=== PATIENT | male | born 1955 | race Caucasian/White ===

== ENCOUNTER 2019-12-03 11:00 | Outpatient (RCR) | payer OTHER, SELFPAY ==
[2019-12-03 11:55] LABS: Add Urine Microscopic? YES; Bilirubin Urine Neg (NEGATIVE); Blood Urine 3+ (Negative); Glucose Urine UA 2+ (Normal); Ketones Urine Negative (Negative); Leukocyte Esterase Urine 2+ (Negative); Nitrate Urine Negative (Negative); Protein Urine Neg (Negative); Urine Appearance Cloudy (CLEAR); Urine Color Yellow (Yellow); Urobilinogen Urine Norm (Negative); pH Urine 8.5 (5-7)
[2019-12-03 11:56] LABS: Sulfosalicylic Acid Urine Positive
[2019-12-03 12:00] LABS: RBC Urine 50-80 /hpf (0-2); WBC Urine 15-25 /hpf (0-5)
[2019-12-03 12:01] LABS: Add Urine Culture? Yes; Bacteria Urine 4+; Mucus Urine 1+; Triple Phosphate Crystal Urine 15-25 /hpf
== END 2019-12-18 23:59 | disposition home or self-care (01) ==
LOC: LAB 11:00
PROVIDERS: PCP Family Medicine; Visit Provider Family Medicine
DX: N39.0 Urinary tract infection, site not specified (principal)
CPT/HCPCS: 81003; 87077; 87086; 87186

== ENCOUNTER 2019-12-10 14:05 | Outpatient (RCR) | payer OTHER, SELFPAY ==
[2019-12-10 14:16] LABS: Basophils % 0.4 %; Eosinophils # 0.2 10^3/uL (0.0-0.8); Eosinophils % 2.9 %; Hematocrit 39.3 % (42.0-52.0); Hemoglobin 12.1 g/dL (11.7-16.6); Lymphocytes # 1.4 10^3/uL (0.8-4.8); Lymphocytes % 19.6 %; Mean Corpuscular HGB Conc 30.8 g/dL (30.0-36.0); Mean Corpuscular Hemoglobin 26.7 pg (28.0-34.0); Mean Corpuscular Volume 86.6 fL (80-94); Monocytes # 0.7 10^3/uL (0.2-0.9); Monocytes % 9.9 %; Neutrophils # 4.7 10^3/uL (1.8-7.7); Neutrophils % 66.6 %; Nucleated Red Blood Cells % 0 %; Platelet Count 197 10^3/cmm (130-400); Red Blood Count 4.54 10^6/uL (4.1-5.3); Red Cell Distribution Width 16.1 % (12.1-15.1)
[2019-12-10 14:46] LABS: Alanine Aminotransferase 17 U/L (0-41); Albumin Level 3.7 g/dL (3.5-5.2); Alkaline Phosphatase 156 IU/L (40-130); Anion Gap 16.6 (5-19); Aspartate Amino Transferase 21 U/L (0-40); Blood Urea Nitrogen 13 mg/dL (8-23); Calcium 9.2 mg/dL (8.5-10.5); Carbon Dioxide 25 mmol/L (22-29); Chloride 99 mmol/L (98-107); Chol HDL Ratio 2.59 mg/dL (1.0-5.00); Cholesterol 96 mg/dL (0-200); Estmated Average Glucose 177; Free T4 Free Thyroxine 1.25 ng/dL (0.82-1.77); Globulin 2.9 g/dL (1.3-4.6); Glomerular Filtration Rate 96.7 mL/min (90-130); Glucose 235 mg/dL (74-106); HDL Cholesterol 37 mg/dL (60-100); Hemoglobin A1C 7.8 % (4.0-6.0); LDL Cholesterol Calculated 44 mg/dL (50-129); LDL HDL Ratio 1.19 RATIO (0.00-3.22); Potassium 3.6 mmol/L (3.5-5.1); Sodium 137 mmol/L (136-145); Thyroid Stimulating Hormone 2.94 uIU/mL (0.27-4.20); Total Bilirubin 0.7 mg/dL (0.15-1.2); Total Protein 6.6 g/dL (6.6-8.7); Triglycerides 74 mg/dL (0-150)
== END 2019-12-18 23:59 | disposition home or self-care (01) ==
LOC: LAB 14:05
PROVIDERS: PCP Family Medicine; Visit Provider Nurse Practitioner Family
DX: N39.0 Urinary tract infection, site not specified (principal)
CPT/HCPCS: 80053; 80061; 83036; 84439; 84443; 85025

== ENCOUNTER 2020-02-11 18:59 | Outpatient (CLI) | payer MEDICARE, MEDICAID, SELFPAY ==
[2020-02-11 19:32] LABS: Add Urine Microscopic? YES; Bilirubin Urine Neg (NEGATIVE); Blood Urine 3+ (Negative); Glucose Urine UA Norm (Normal); Ketones Urine Negative (Negative); Leukocyte Esterase Urine 2+ (Negative); Nitrate Urine Positive (Negative); Protein Urine Neg (Negative); Urine Appearance Cloudy (CLEAR); Urine Color Yellow (Yellow); Urobilinogen Urine Norm (Negative); pH Urine 5 (5-7)
[2020-02-11 19:42] LABS: Add Urine Culture? Yes; Bacteria Urine 3+; RBC Urine 15-25 /hpf (0-2); WBC Urine 40-55 /hpf (0-5)
== END 2020-02-11 19:00 | disposition home or self-care (01) ==
LOC: LAB 19:04
PROVIDERS: PCP Family Medicine; Visit Provider Nurse Practitioner Family
DX: N30.00 Acute cystitis without hematuria (principal)
CPT/HCPCS: 81001; 87077; 87086; 87186

== ENCOUNTER 2020-04-01 13:21 | Outpatient (CLI) | payer MEDICARE, MEDICAID, SELFPAY ==
[2020-04-01 13:50] LABS: Basophils % 0.3 %; Eosinophils # 0.1 10^3/uL (0.0-0.8); Hematocrit 39.6 % (42.0-52.0); Hemoglobin 12.4 g/dL (11.7-16.6); Lymphocytes # 1.3 10^3/uL (0.8-4.8); Lymphocytes % 22.9 %; Mean Corpuscular HGB Conc 31.3 g/dL (30.0-36.0); Mean Corpuscular Hemoglobin 26.1 pg (28.0-34.0); Mean Corpuscular Volume 83.2 fL (80-94); Monocytes # 0.5 10^3/uL (0.2-0.9); Monocytes % 7.7 %; Neutrophils # 3.9 10^3/uL (1.8-7.7); Neutrophils % 66.8 %; Nucleated Red Blood Cells % 0 %; Platelet Count 155 10^3/cmm (130-400); Red Blood Count 4.76 10^6/uL (4.1-5.3); Red Cell Distribution Width 14.6 % (12.1-15.1); White Blood Count 5.9 10^3/uL (4.0-10.0)
[2020-04-01 14:06] LABS: Urine Appearance Cloudy (CLEAR); Urine Color Yellow (Yellow)
[2020-04-01 14:08] LABS: Glucose Urine UA 2+ (Normal); Ketones Urine Negative (Negative); Protein Urine Neg (Negative); Specific Gravity, Urine 1.015 (1.005-1.030); pH Urine 5 (5-7)
[2020-04-01 14:09] LABS: Add Urine Culture? Yes; Bacteria Urine 2+; Bilirubin Urine Neg (NEGATIVE); Blood Urine 3+ (Negative); Leukocyte Esterase Urine 1+ (Negative); Nitrate Urine Negative (Negative); RBC Urine TOO NUMEROUS TO CNT /hpf (0-2); Urobilinogen Urine 1 mg/dL (Negative); WBC Urine TOO NUMEROUS TO CNT /hpf (0-5)
[2020-04-01 15:28] LABS: 25 Hydroxy Vitamin D 17 ng/mL (30-100); Alanine Aminotransferase 24 U/L (0-41); Albumin Level 3.6 g/dL (3.5-5.2); Alkaline Phosphatase 121 IU/L (40-130); Anion Gap 16.7 (5-19); Aspartate Amino Transferase 27 U/L (0-40); Blood Urea Nitrogen 8 mg/dL (8-23); Calcium 9.1 mg/dL (8.5-10.5); Carbon Dioxide 23 mmol/L (22-29); Chloride 105 mmol/L (98-107); Chol HDL Ratio 2.33 mg/dL (1.0-5.00); Cholesterol 84 mg/dL (0-200); Globulin 2.6 g/dL (1.3-4.6); Glomerular Filtration Rate 96.7 mL/min (90-130); Glucose 197 mg/dL (65-115); HDL Cholesterol 36 mg/dL (60-100); LDL Cholesterol Calculated 27 mg/dL (50-129); LDL HDL Ratio 0.75 RATIO (0.00-3.22); Osmolality Calculated 293 mOsm/kg (285-295); Potassium 3.7 mmol/L (3.5-5.1); Sodium 141 mmol/L (136-145); Thyroid Stimulating Hormone 1.78 uIU/mL (0.27-4.20); Total Bilirubin 0.7 mg/dL (0.15-1.2); Total Protein 6.2 g/dL (6.6-8.7); Triglycerides 103 mg/dL (0-150)
[2020-04-01 17:17] LABS: Estmated Average Glucose 169; Hemoglobin A1C 7.5 % (4.0-6.0)
== END 2020-04-01 13:22 | disposition home or self-care (01) ==
LOC: LAB 13:25
PROVIDERS: PCP Nurse Practitioner Family; Visit Provider Nurse Practitioner Family
DX: N30.00 Acute cystitis without hematuria (principal); I50.9 Heart failure, unspecified; N18.9 Chronic kidney disease, unspecified
CPT/HCPCS: 80053; 80061; 81001; 82306; 83036; 84443; 85025

== ENCOUNTER 2020-06-21 17:41 | Outpatient (CLI) | payer MEDICARE, MEDICAID, SELFPAY ==
[2020-06-21 18:43] LABS: Bilirubin Urine Neg (NEGATIVE); Blood Urine 3+ (Negative); Glucose Urine UA Trace (Normal); Ketones Urine Negative (Negative); Leukocyte Esterase Urine 2+ (Negative); Nitrate Urine Negative (Negative); Protein Urine Trace (Negative); Specific Gravity, Urine 1.025 (1.005-1.030); Squamous Epithelial Cell Urine 0-4 (0-5); Urine Appearance Cloudy (CLEAR); Urine Color Yellow (Yellow); Urobilinogen Urine Norm (Negative); WBC Urine TOO NUMEROUS TO CNT /hpf (0-5); pH Urine 5 (5-7)
[2020-06-21 18:44] LABS: Add Urine Culture? Yes; Bacteria Urine 4+
== END 2020-06-21 17:42 | disposition home or self-care (01) ==
LOC: LAB 17:45
PROVIDERS: PCP Nurse Practitioner Family; Visit Provider Nurse Practitioner Family
DX: Z87.440 Personal history of urinary (tract) infections (principal); T83.511A Infection and inflammatory reaction due to indwelling urethral catheter, initial encounter; X58.XXXA Exposure to other specified factors, initial encounter
CPT/HCPCS: 81001; 87086; 87106

== ENCOUNTER → 2020-06-28 16:53 | Outpatient (BNVA) | payer MEDICARE, MEDICAID, SELFPAY | PROVIDERS: PCP Nurse Practitioner Family; Visit Provider Nurse Practitioner Family | DX: N39.0 Urinary tract infection, site not specified (principal) | CPT/HCPCS: 81003 ==

== ENCOUNTER → 2020-08-18 11:07 | Outpatient (BNVA) | payer MEDICARE, MEDICAID, SELFPAY | PROVIDERS: PCP Nurse Practitioner Family; Visit Provider Nurse Practitioner Family | DX: N39.0 Urinary tract infection, site not specified (principal); A49.9 Bacterial infection, unspecified | CPT/HCPCS: 80053; 81003; 87077; 87086; 87186 ==

== ENCOUNTER 2020-09-12 12:10 | Inpatient (IN) | payer MEDICARE, MEDICAID, SELFPAY ==
[2020-09-12] VITALS (11 sets, daily range): BP systolic 78–126; BP diastolic 59–89; PULSE 74–90; RESP 16–20; TEMP 36.4; O2SAT 94–98; BMI 23.0
--- NOTE | 2020-09-12 12:15 | ECG_ITS ---
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 Measurements Intervals Lena Rate: 77 P: ID: [id number] QRS: 79 QRSD: 82 T: 15 QT: 360 QTc: 408 Interpretive Statements ATRIAL FIBRILLATION LOW QRS VOLTAGE IN PRECORDIAL LEADS [QRS DEFLECTION < 1.0 mV IN CHEST LEADS] SEPTAL MYOCARDIAL INFARCTION , PROBABLY OLD [40+ ms Q WAVE IN V1/V2] Compared to ECG 05/18/2019 15:02:19 Low QRS voltage now present Myocardial infarct finding now present Ventricular-paced complex(es) or rhythm no longer present Electronically Signed On 09-13-2020 7:18:27 CDT by Kiya Franklin M.D. [email or web address]
--- NOTE | 2020-09-12 12:15 | XR_ITS ---
WS: [id number] Exam: XR chest 1V portable [id number] Date/Time of Exam: 09/12/2020 12:15 PM Reason For Exam: fever Comparison 05/14/2019. The lungs are clear and hyperinflated. Normal cardiomediastinal structures. An ICD superimposes the l eft chest. Regional bony structures are intact. XR/XR chest 1V portable [id number] IMPRESSION: 1. No acute cardiopulmonary findings.
--- NOTE | 2020-09-12 12:28 | W.ED.MALEGU ---
HPI - Male Genitourinary General: Chief complaint: Urogenital-Male Stated complaint: UTI, POSS SEPTIC Time Seen by Provider: 09/12/20 12:13 Source: patient and EMS Mode of arrival: EMS Limitations: no limitations History of Present Illness: HPI Narrative: Arnie is a 65-year-old male has a history of neurogenic bladder with indwelling Culp. He has been having low-grade fevers over the last 2 days and was diagnosed with a UTI over the weekend at [facility]. Patient placed on Augmentin. Had no improvement of his symptoms and was seen in clinic today. Patient was sent here by ambulance from the clinic as he was hypotensive and concerns for sepsis. Denies any worsening or improving factors. Patient's blood pressure at clinic was 90/60 patient was given IV fluids in route and his pressures improved at 96/65. Associated symptoms: Deny dysuria, nausea or vomiting Review of Systems Const: Denies: fever(s), chills, body aches or change in appetite Eyes: Denies: blurry vision or eye discomfort ENMT: Denies: throat pain or dental pain Card: Denies: chest pain Resp: Denies: dyspnea GI: Denies: abdominal pain, nausea, vomiting or diarrhea : Denies: dysuria Musc: Denies: neck pain or back pain Skin/Breast: Denies: rash Neuro: Reports: weakness in extremities Psych: Denies: depression Sheng/Lymph: Denies: easy bruising All/Imm: Denies: urticaria PFSH ED PFSH: Medical History BPH (benign prostatic hyperplasia) CAD (coronary artery disease) Chronic anticoagulation Diabetes mellitus, type II Erectile dysfunction GERD (gastroesophageal reflux disease) H/O deep venous thrombosis Mixed hyperlipidemia Neurogenic bladder Pacemaker PAT (paroxysmal atrial tachycardia) UTI (urinary tract infection), bacterial Vitamin D deficiency Surgical History H/O heart artery stent Physical Exam Const: COMMON NORMALS: patient oriented x3 GENERAL APPEARANCE: ill appearing HENMT: COMMON NORMALS: normocephalic and atraumatic HEAD & SCALP: normocephalic and atraumatic Eye: COMMON NORMALS: Equal, round and reactive pupils present and EOMs intact bilaterally PUPIL: Yes Equal, round and reactive pupils present Neck/C-Spine: COMMON NORMALS: full ROM and supple Chest: COMMONS NORMALS: normal inspection of the chest and normal palpation of entire chest wall Resp: COMMON NORMALS: normal respiratory effort, No retractions, No use of accessory muscles and clear to auscultation bilaterally AUSCULTATION: clear to auscultation bilaterally Cardio: COMMON NORMALS: regular rate, regular rhythm and No murmurs present (Cardio) RATE: regular rate RHYTHM: regular rhythm GI: COMMON NORMALS: Normal to inspection, nondistended, normoactive bowel sounds present, Soft to palpation, non-tender and no masses PALPATION: Yes Soft to palpation Extremity: COMMON NORMALS: normal to inspection and full ROM Neuro: COMMON NORMALS: patient oriented x3, moves all extremities and no focal motor deficits Psych: COMMON NORMALS: mental status grossly normal, Normal thought process present and cooperative THOUGHT PROCESS: Normal thought process present Skin: COMMON NORMALS: no rashes or lesions noted and no wounds GENERAL SKIN EXAM: no rashes or lesions noted Course Vital Signs: Vital signs: Vital Signs Temperature 97.6 F 09/12/20 12:17 Pulse Rate 84 09/12/20 14:30 Respiratory Rate 17 09/12/20 14:30 Blood Pressure 110/75 09/12/20 14:30 Pulse Oximetry 97 09/12/20 14:30 MDM - Male MDM Narrative: Medical decision making narrative: Patient presents here with hypotension was transferred here from clinic. Patient was initially hypotensive here but his blood pressures improved greatly after IV fluids. He does have a urinary tract infection. Patient CT of his abdomen here is negative. I spoke to hospitalist and will admit at this time. Patient has no signs of pneumonia or other cause for his hypotension. Lab Data: Labs: Lab Results 09/12/20 09/12/20 09/12/20 Range/Units 13:05 13:05 13:05 WBC 5.1 (4.0-10.0) 10^3/ uL RBC 4.38 (4.1-5.3) 10^6/u L Hgb 12.0 (11.7-16.6) g/dL Hct 37.6 L (42.0-52.0) % MCV 85.8 (80-94) fL MCH 27.4 L (28.0-34.0) pg MCHC 31.9 (30.0-36.0) g/dL RDW 14.0 (12.1-15.1) % Plt Count 135 (130-400) 10^3/c mm MPV 10.4 (7.4-10.4) fL Neut % (Auto) 57.2 % Lymph % (Auto) 25.9 % Marathon % (Auto) 14.3 % Eos % (Auto) 1.4 % Baso % (Auto) 0.6 % Neut # (Auto) 2.91 (1.8-7.7) 10^3/u L Lymph # (Auto) 1.3 (0.8-4.8) 10^3/u L Marathon # (Auto) 0.7 (0.2-0.9) 10^3/u L Eos # (Auto) 0.1 (0.0-0.8) 10^3/u L Baso # (Auto) 0.0 (0.0-0.1) 10^3/u L Nucleated RBC % (a uto) 0 % Nucleated RBCs # 0.0 /100WBC Sodium 138 (136-145) mmol/L Potassium 4.1 (3.5-5.1) mmol/L Chloride 103 (98-107) mmol/L Carbon Dioxide 25 (22-29) mmol/L Anion Gap 14.1 (5-19) BUN 15 (8-23) mg/dL Creatinine 0.5 L (0.7-1.2) mg/dL GFR Calculation 165.9 H (90-130) mL/min Glucose 105 (65-115) mg/dL Calculated Osmolal ity 287 (285-295) mOsm/k g Lactate 0.9 (0.5-2.2) mmol/L Calcium 8.2 L (8.5-10.5) mg/dL Magnesium 1.4 L (1.7-2.3) mg/dL Total Bilirubin 0.6 (0.15-1.2) mg/dL AST 28 (0-40) U/L ALT 27 (0-41) U/L Alkaline Phosphata se 127 (40-130) IU/L Total Protein 5.8 L (6.6-8.7) g/dL Albumin 3.4 L (3.5-5.2) g/dL Globulin 2.4 (1.3-4.6) g/dL Lipase 11 L (13-60) U/L Urine Color (Yellow) Urine Appearance (CLEAR) Urine pH (5-7) Ur Specific Gravit y (1.005-1.030) Urine Protein (Negative) Urine Glucose (UA) (Normal) Urine Ketones (Negative) Urine Blood (Negative) Urine Nitrate (Negative) Urine Bilirubin (Negative) Urine Urobilinogen (Negative) mg/dL Ur Leukocyte Katy ase (Negative) Urine RBC (0-2) /hpf Urine WBC (0-5) /hpf Ur Squamous Epith Cells (0-5) /hpf Amorphous Sediment Urine Bacteria (NONE) /hpf 09/12/ Range/Units 14:30 WBC (4.0-10.0) 10^3/ uL RBC (4.1-5.3) 10^6/u L Hgb (11.7-16.6) g/dL Hct (42.0-52.0) % MCV (80-94) fL MCH (28.0-34.0) pg MCHC (30.0-36.0) g/dL RDW (12.1-15.1) % Plt Count (130-400) 10^3/c mm MPV (7.4-10.4) fL Neut % (Auto) % Lymph % (Auto) % Marathon % (Auto) % Eos % (Auto) % Baso % (Auto) % Neut # (Auto) (1.8-7.7) 10^3/u L Lymph # (Auto) (0.8-4.8) 10^3/u L Marathon # (Auto) (0.2-0.9) 10^3/u L Eos # (Auto) (0.0-0.8) 10^3/u L Baso # (Auto) (0.0-0.1) 10^3/u L Nucleated RBC % (a uto) % Nucleated RBCs # /100WBC Sodium (136-145) mmol/L Potassium (3.5-5.1) mmol/L Chloride (98-107) mmol/L Carbon Dioxide (22-29) mmol/L Anion Gap (5-19) BUN (8-23) mg/dL Creatinine (0.7-1.2) mg/dL GFR Calculation (90-130) mL/min Glucose (65-115) mg/dL Calculated Osmolal ity (285-295) mOsm/k g Lactate (0.5-2.2) mmol/L Calcium (8.5-10.5) mg/dL Magnesium (1.7-2.3) mg/dL Total Bilirubin (0.15-1.2) mg/dL AST (0-40) U/L ALT (0-41) U/L Alkaline Phosphata se (40-130) IU/L Total Protein (6.6-8.7) g/dL Albumin (3.5-5.2) g/dL Globulin (1.3-4.6) g/dL Lipase (13-60) U/L Urine Color Juanis (Yellow) Urine Appearance Cloudy (CLEAR) Urine pH 5 (5-7) Ur Specific Gravit y 1.025 (1.005-1.030) Urine Protein 1+ H (Negative) Urine Glucose (UA) Norm (Normal) Urine Ketones Negative (Negative) Urine Blood 3+ H (Negative) Urine Nitrate Negative (Negative) Urine Bilirubin Neg (Negative) Urine Urobilinogen Norm (Negative) mg/dL Ur Leukocyte Katy ase 2+ H (Negative) Urine RBC 15-25 H (0-2) /hpf Urine WBC 25-40 H (0-5) /hpf Ur Squamous Epith Cells None (0-5) /hpf Amorphous Sediment Not Reportable Urine Bacteria 2+ H (NONE) /hpf Imaging Data: CXR: Attestation: I personally reviewed and interpreted this imaging study as follows: Radiologist's impression: [address] [address] XRay Report Signed Patient: Arnie Butler Unit #: [id number] : 1955 Age/Sex: 65 / M ADM Date: 09/12/20 Loc: ER Room/Bed: Attending Dr: Ordering Provider/Ordering MD: John Glez MD Date of Service: 09/12/20 Procedure(s): XR chest 1V portable [id number] Accession Number(s): [id number] Report Number: [id number] WS: [id number] Exam: XR chest 1V portable [id number] Date/Time of Exam: 09/12/2020 12:15 PM Reason For Exam: fever Comparison 05/14/2019. The lungs are clear and hyperinflated. Normal cardiomediastinal structures. An ICD superimposes the left chest. Regional bony structures are intact. XR/XR chest 1V portable [id number] IMPRESSION: 1. No acute cardiopulmonary findings. CT Abd/Pel: Attestation: I personally reviewed and interpreted this imaging study as follows: Radiologist's impression: [facility] [address] [place] [address] CT Scan Report Signed Patient: Arnie Butler Unit #: [id number] : 1955 Age/Sex: 65 / M ADM Date: 09/12/20 Loc: ER Room/Bed: Attending Dr: Ordering Provider/Ordering MD: John Glez MD Date of Service: 09/12/20 Procedure(s): CT abdomen pelvis w con* [id number] Accession Number(s): [id number] Report Number: [id number] WS: [id number] CT ABDOMEN AND PELVIS WITH CONTRAST HISTORY: Diffuse abdominal pain. Urinary tract infection. TECHNIQUE: Imaging performed of the abdomen and pelvis with IV contrast. Single phase imaging of the abdomen. Coronal and sagittal reformats are submitted. All CT scans at [facility] use at least one of these dose optimization techniques: automated exposure control; mA and/or kV adjustment per patient size (includes targeted exams where dose is matched to clinical indication); or iterative reconstruction. IV CONTRAST: Omnipaque 300; 95 mL IV. Oral contrast: No DLP: 642.52 mGy.cm COMPARISON: 08/19/2014 Lower thorax: Dependent changes and mild groundglass attenuation and atelectasis at the lung bases. Mildly enlarged cardiac chambers. No hiatal hernia. Liver/biliary system: Normal size with no intrahepatic dilatation. Gallbladder: Normal. No gallstones or wall thickening. No pericholecystic fluid. Pancreas: Mild pancreatic atrophy. No duct dilatation. Spleen: Normal. Adrenal glands: Normal. Right kidney: Normal size RIGHT kidney. Hypodense nodule in the mid kidney with adjacent cortical thinning measures 13 mm. No obstruction. Left kidney: Normal. Aorta: Extensive calcification no aneurysm. Very mild ectasia. Lymphadenopathy: None. Free fluid: None. GI tract: Normal appendix. Mild diffuse fecal retention and constipation. No obstruction. No wall thickening. Abdominal wall: Unremarkable abdominal wall. No hernia. Pelvis: Culp catheter present in the urinary bladder. Air within the urinary bladder is probably from the catheter insertion. Bones: Mild anterior wedging of T10 and T11. No acute fractures. CT/CT abdomen pelvis w con* [id number] IMPRESSION: 1. No renal obstruction or perinephric stranding. 2. Extensive calcification in the abdominal aorta and common iliac arteries. 3. No ascites. 4. Mild diffuse constipation. 5. Cortical scar with an indeterminate 1.3 cm lesion in the mid RIGHT kidney. Consider follow-up renal ultrasound for further evaluation. May be a mildly complex cyst. EKG Data: EKG 1: Attestation: I personally reviewed and interpreted this EKG as follows: EKG Data: 09/12/20 EKG interpretation time: 12:59 Interpretation: afib hr [address] or t wave abnormalities qrs 82 qtc 391 Discharge Plan Discharge Patient Disposition: Admitted As Inpatient Clinical Impression: Hypotension Acute cystitis Qualifiers: Hematuria presence: without hematuria Qualified Code(s): N30.00 - Acute cystitis without hematuria Condition: Stable Referrals: PASCUAL Neely, REINSURANCE ACCOUNTANT [Primary Care Provider] - Coding Level of Care Code ED Slackman for Chg Fwd Exam Comprehensive
[2020-09-12 13:19] LABS: Basophils % 0.6 %; Eosinophils # 0.1 10^3/uL (0.0-0.8); Eosinophils % 1.4 %; Hematocrit 37.6 % (42.0-52.0); Lymphocytes # 1.3 10^3/uL (0.8-4.8); Lymphocytes % 25.9 %; Mean Corpuscular HGB Conc 31.9 g/dL (30.0-36.0); Mean Corpuscular Hemoglobin 27.4 pg (28.0-34.0); Mean Corpuscular Volume 85.8 fL (80-94); Mean Platelet Volume 10.4 fL (7.4-10.4); Monocytes # 0.7 10^3/uL (0.2-0.9); Monocytes % 14.3 %; Neutrophils # 2.91 10^3/uL (1.8-7.7); Neutrophils % 57.2 %; Nucleated Red Blood Cells % 0 %; Platelet Count 135 10^3/cmm (130-400); Red Blood Count 4.38 10^6/uL (4.1-5.3); White Blood Count 5.1 10^3/uL (4.0-10.0)
[2020-09-12] MEDS: sodium chloride 0.9% 1,000 ML 999 ML IV ×2 (13:20→16:24)
[2020-09-12] MEDS: piperacillin-tazobactam 3.375 GM in sodium chloride 0.9% (plus) 50 ML IV (13:20)
[2020-09-12 13:33] LABS: Lactate (Lactic Acid level) 0.9 mmol/L (0.5-2.2)
[2020-09-12 13:34] LABS: Alanine Aminotransferase 27 U/L (0-41); Albumin Level 3.4 g/dL (3.5-5.2); Alkaline Phosphatase 127 IU/L (40-130); Blood Urea Nitrogen 15 mg/dL (8-23); Calcium 8.2 mg/dL (8.5-10.5); Carbon Dioxide 25 mmol/L (22-29); Chloride 103 mmol/L (98-107); Globulin 2.4 g/dL (1.3-4.6); Glomerular Filtration Rate 165.9 mL/min (90-130); Glucose 105 mg/dL (65-115); Lipase 11 U/L (13-60); Magnesium 1.4 mg/dL (1.7-2.3); Osmolality Calculated 287 mOsm/kg (285-295); Sodium 138 mmol/L (136-145); Total Bilirubin 0.6 mg/dL (0.15-1.2); Total Protein 5.8 g/dL (6.6-8.7)
[2020-09-12 13:37] LABS: Anion Gap 14.1 (5-19); Potassium 4.1 mmol/L (3.5-5.1)
[2020-09-12 13:38] LABS: Aspartate Amino Transferase 28 U/L (0-40)
--- NOTE | 2020-09-12 13:40 | CT_ITS ---
WS: [id number] CT ABDOMEN AND PELVIS WITH CONTRAST HISTORY: Diffuse abdominal pain. Urinary tract infection. TECHNIQUE: Imaging performed of the abdomen and pelvis with IV contrast. Single phase imaging of the abdomen. Coronal and sagittal reformats are submitted. All CT scans at [facility] use at least one of these dose optimization techniques: automated exposure control; mA and/or kV adjustment per patient size (includes targeted exams where dose is matched to clinical indication); or iterativ e reconstruction. IV CONTRAST: Omnipaque 300; 95 mL IV. Oral contrast: No DLP: 642.52 mGy.cm COMPARISON: 08/19/2014 Lower thorax: Dependent changes and mild groundglass attenuation and atelectasis at the lung bases. M ildly enlarged cardiac chambers. No hiatal hernia. Liver/biliary system: Normal size with no intrahepatic dilatation. Gallbladder: Normal. No gallstones or wall thickening. No pericholecystic fluid. Pancreas: Mild pancreatic atrophy. No duct dilatation. Spleen: Normal. Adrenal glands: Normal. Right kidney: Normal size RIGHT kidney. Hypodense nodule in the mid kidney with adjacent cortical thi nning measures 13 mm. No obstruction. Left kidney: Normal. Aorta: Extensive calcification no aneurysm. Very mild ectasia. Lymphadenopathy: None. Free fluid: None. GI tract: Normal appendix. Mild diffuse fecal retention and constipation. No obstruction. No wall thi ckening. Abdominal wall: Unremarkable abdominal wall. No hernia. Pelvis: Culp catheter present in the urinary bladder. Air within the urinary bladder is probably fro m the catheter insertion. Bones: Mild anterior wedging of T10 and T11. No acute fractures. CT/CT abdomen pelvis w con* [id number] IMPRESSION: 1. No renal obstruction or perinephric stranding. 2. Extensive calcification in the abdominal aorta and common iliac arteries. 3. No ascites. 4. Mild diffuse constipation. 5. Cortical scar with an indeterminate 1.3 cm lesion in the mid RIGHT kidney. Consider follow-up renal ultrasound for further evaluation. May be a mildly com plex cyst.
[2020-09-12] MEDS: vancomycin 1,000 MG in sodium chloride 0.9% 250 ML 250 MG IV (14:25)
[2020-09-12 14:58] LABS: Urine Appearance Cloudy (CLEAR); Urine Color Amber (Yellow)
[2020-09-12 14:59] LABS: Add Urine Microscopic? YES; Bacteria Urine 2+ /hpf; Bilirubin Urine Neg (Negative); Blood Urine 3+ (Negative); Glucose Urine UA Norm (Normal); Ketones Urine Negative (Negative); Leukocyte Esterase Urine 2+ (Negative); Nitrate Urine Negative (Negative); Protein Urine 1+ (Negative); RBC Urine 15-25 /hpf (0-2); Specific Gravity, Urine 1.025 (1.005-1.030); Urobilinogen Urine Norm (Negative); WBC Urine 25-40 /hpf (0-5); pH Urine 5 (5-7)
[2020-09-12 15:00] LABS: Add Urine Culture? No
--- NOTE | 2020-09-12 17:00 | PC.NURSE ---
Attempted to call report at 1700, floor unable to locate nurse and stated assigned nurse would return call to accept report
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
[2020-09-12 17:49] LABS: Glucose Point of Care 112 mg/dL (70-110)
--- NOTE | 2020-09-12 18:22 | PC.NURSE ---
DR. MALDONADO ORDERED TO MOVE IMPEPINEM DOSE TO 2000 TO ACCOMMODATE THE [employer] ADMINISTRATION.
[2020-09-12] MEDS: magnesium sulfate premix 2 GM/50 ML PIGGYBACK IV (18:28)
[2020-09-12] MEDS: docusate sodium 100 mg Capsule PO (18:28)
[2020-09-12] MEDS: sodium chloride 0.9% 1,000 ML 75 ML IV (18:29)
[2020-09-12] MEDS: sennosides 8.6 mg Tablet 17.2 MG PO (20:26)
[2020-09-12 20:41] LABS: Glucose Point of Care 186 mg/dL (70-110)
[2020-09-13] VITALS (8 sets, daily range): BP systolic 102–121; BP diastolic 64–79; PULSE 74–96; RESP 16–18; TEMP 36.7–37.3; O2SAT 91–96
[2020-09-13 05:43] LABS: Basophils % 0.4 %; Eosinophils # 0.1 10^3/uL (0.0-0.8); Eosinophils % 2.1 %; Hematocrit 36.2 % (42.0-52.0); Hemoglobin 11.5 g/dL (11.7-16.6); Lymphocytes # 0.9 10^3/uL (0.8-4.8); Lymphocytes % 17.4 %; Mean Corpuscular HGB Conc 31.8 g/dL (30.0-36.0); Mean Corpuscular Hemoglobin 27.5 pg (28.0-34.0); Mean Corpuscular Volume 86.6 fL (80-94); Mean Platelet Volume 10.5 fL (7.4-10.4); Monocytes # 0.9 10^3/uL (0.2-0.9); Neutrophils # 3.38 10^3/uL (1.8-7.7); Neutrophils % 63.7 %; Nucleated Red Blood Cells % 0 %; Platelet Count 104 10^3/cmm (130-400); Red Blood Count 4.18 10^6/uL (4.1-5.3); White Blood Count 5.3 10^3/uL (4.0-10.0)
[2020-09-13 06:09] LABS: Alanine Aminotransferase 24 U/L (0-41); Albumin Level 2.9 g/dL (3.5-5.2); Alkaline Phosphatase 121 IU/L (40-130); Anion Gap 9.1 (5-19); Aspartate Amino Transferase 23 U/L (0-40); Blood Urea Nitrogen 12 mg/dL (8-23); Calcium 8.2 mg/dL (8.5-10.5); Carbon Dioxide 26 mmol/L (22-29); Chloride 109 mmol/L (98-107); Globulin 2.1 g/dL (1.3-4.6); Glomerular Filtration Rate 134.4 mL/min (90-130); Glucose 114 mg/dL (65-115); Magnesium 1.7 mg/dL (1.7-2.3); Osmolality Calculated 291 mOsm/kg (285-295); Potassium 4.1 mmol/L (3.5-5.1); Sodium 140 mmol/L (136-145); Total Bilirubin 0.6 mg/dL (0.15-1.2)
[2020-09-13 06:34] LABS: Glucose Point of Care 104 mg/dL (70-110)
[2020-09-13] MEDS: docusate sodium 100 mg Capsule PO ×2 (09:30→17:04)
[2020-09-13] MEDS: rivaroxaban 10 mg Tablet 20 MG PO (09:30)
[2020-09-13] MEDS: pantoprazole DR 40 mg Tablet PO (09:30)
[2020-09-13] MEDS: pneumococcal (23 valent) SDV 0.5 mL IM (09:31)
[2020-09-13] MEDS: atorvastatin 40 mg Tablet PO (09:31)
[2020-09-13] MEDS: sodium chloride 0.9% 1,000 ML 75 ML IV (09:33)
--- NOTE | 2020-09-13 10:53 | PM.PN ---
Subjective Subjective: Interval history: Arnie reports he is feeling better. Less lower extremity pain. No nausea or vomiting. Medications: Reviewed: Yes Vitals/I&O/Wt Last Vital Signs Temp 98.3 F 09/13/20 08:00 Pulse 76 09/13/20 09:30 Resp 18 09/13/20 09:30 BP 117/79 09/13/20 08:00 Pulse Ox 91 09/13/20 09:30 09/12/20 09/13/20 09/13/20 22:59 06:59 14:59 Intake Total 1989 100 / 2090 1350 / 1350 Output Total 750 / 750 750 / 750 Balance 1989 -650 / 1340 600 / 600 Weight last 48 hrs Weight 74.843 kg Physical Exam Narrative: EXAM NARRATIVE: General exam is a conversant white male, in no apparent distress Cardiovascular regular rate and rhythm without murmur, no S3 or S4 Lungs clear no wheezing or crackles Abdomen is soft with positive bowel sounds. No significant tenderness today Extremities trace bilateral edema, atrophy Urinary Catheter Management^: Culp: Cath Placed During This Visit: yes Reason for Continuing Indwelling Catheter: Chronic Indwelling Urinary Catheter on Admission Urinary Catheter Date of Insertion: 09/12/20 Urinary Catheter Time of Insertion: 14:10 Data : 09/13/20 04:55 09/13/20 04:55 Micro: Microbiology 09/12/20 13:08 Blood Culture - Preliminary Blood SPECIMEN COLLECTED 09/12/20 13:05 Blood Culture - Preliminary Blood SPECIMEN COLLECTED A&P Assessment and plan (1) Hypotension: Cannot rule out sepsis although no fever documented, no tachycardia, no elevated lactic acid. Reduce IV fluids today We will see if urine cultures at [facility] have been completed Continue to hold hydrochlorothiazide Continue to hold Flomax. 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 Status: Acute Additional A&P Information Mild decrease in platelets. Recheck tomorrow. History of paraparesis with neurogenic bladder. Continue Culp Renal lesion. Outpatient follow-up plan ultrasound Coronary artery disease, continue home medications Type 2 diabetes, sliding scale insulin. Patient refuses diabetic diet. Changed to regular. GERD continue proton pump inhibitor History of DVT, continue Xarelto Multiple other medical problems as listed in his past medical history Full code Xarelto will serve for DVT prophylaxis Attestations Medical Necessity Statement*: Needs continued hospital stay for IV antibiotics related to UTI, hypotension, history of significantly resistant organisms in the past. Coding Level of Care Code Acute Gill Tender for [facility] Fwd Diagnoses Hypotension I95.9 Acute cystitis N30.00 Hematuria presence: without hematuria Hypomagnesemia E83.42 Constipation K59.00
[2020-09-13 11:27] LABS: Glucose Point of Care 118 mg/dL (70-110)
[2020-09-13 16:44] LABS: Glucose Point of Care 150 mg/dL (70-110)
[2020-09-13] MEDS: sennosides 8.6 mg Tablet 17.2 MG PO (20:25)
[2020-09-13] MEDS: baclofen 10 mg Tablet PO (20:42)
[2020-09-13 21:30] LABS: Glucose Point of Care 187 mg/dL (70-110)
--- NOTE | 2020-09-13 23:05 | PC.NURSE ---
Pt reports right hip and knee pain requesting medication for pain rated 8 on a 1-10 pain scale. Nurse notified, contacted for medication order. Patient aware physician was notified.
[2020-09-13] MEDS: acetaminophen 325 mg Tablet 650 MG PO (23:31)
[2020-09-13] MEDS: bisacodyl 5 mg Tablet 10 MG PO (23:32)
--- NOTE | 2020-09-13 23:37 | PC.NURSE ---
Patient requested Tylenol for pain. Tylenol was listed as an allergy. This nurse discussed allergy list with patient. Patient states I have always taken Tylenol as home for pain and never had a reaction to it.
[2020-09-13 23:49] LABS: Vancomycin Trough 13.4 ug/mL (10-15)
[2020-09-14] VITALS (8 sets, daily range): BP systolic 119–126; BP diastolic 78–93; PULSE 70–89; RESP 16–20; TEMP 36.6–37.2; O2SAT 94–97
--- NOTE | 2020-09-14 04:16 | PC.NURSE ---
pt complaining of constipation. He received prune juice without resolution. He is passing gas. Physician contacted and order for Dulcolax received. Administered. No BM at this time
[2020-09-14 05:11] LABS: Basophils % 0.3 %; Eosinophils # 0.1 10^3/uL (0.0-0.8); Eosinophils % 1.3 %; Hematocrit 36.4 % (42.0-52.0); Hemoglobin 11.7 g/dL (11.7-16.6); Lymphocytes # 1.7 10^3/uL (0.8-4.8); Lymphocytes % 24.5 %; Mean Corpuscular HGB Conc 32.1 g/dL (30.0-36.0); Mean Corpuscular Hemoglobin 27.3 pg (28.0-34.0); Mean Corpuscular Volume 84.8 fL (80-94); Mean Platelet Volume 10.5 fL (7.4-10.4); Monocytes % 13.4 %; Neutrophils # 4.24 10^3/uL (1.8-7.7); Neutrophils % 59.9 %; Nucleated Red Blood Cells % 0 %; Platelet Count 117 10^3/cmm (130-400); Red Blood Count 4.29 10^6/uL (4.1-5.3); Red Cell Distribution Width 13.7 % (12.1-15.1); White Blood Count 7.1 10^3/uL (4.0-10.0)
[2020-09-14 05:30] LABS: Anion Gap 9.9 (5-19); Blood Urea Nitrogen 11 mg/dL (8-23); Calcium 8.1 mg/dL (8.5-10.5); Carbon Dioxide 25 mmol/L (22-29); Chloride 105 mmol/L (98-107); Glomerular Filtration Rate 112.5 mL/min (90-130); Glucose 171 mg/dL (65-115); Osmolality Calculated 285 mOsm/kg (285-295); Potassium 3.9 mmol/L (3.5-5.1); Sodium 136 mmol/L (136-145)
[2020-09-14 08:39] LABS: Glucose Point of Care 204 mg/dL (70-110)
[2020-09-14] MEDS: pantoprazole DR 40 mg Tablet PO (09:12)
[2020-09-14] MEDS: docusate sodium 100 mg Capsule PO ×2 (09:12→18:06)
[2020-09-14] MEDS: atorvastatin 40 mg Tablet PO (09:12)
[2020-09-14] MEDS: rivaroxaban 10 mg Tablet 20 MG PO (09:12)
--- NOTE | 2020-09-14 10:23 | PC.NURSE ---
Faxed Diana Cornelius request for urine culture
[2020-09-14 11:30] LABS: Glucose Point of Care 138 mg/dL (70-110)
--- NOTE | 2020-09-14 13:55 | P.PN_ITS ---
Subjective Subjective: Interval history: Patient reports he feels a little bit better today, but is not back to baseline. Still some lower abdominal discomfort. Medications: Reviewed: Yes Vitals/I&O/Wt Last Vital Signs Temp 97.9 F 09/14/20 11:18 Pulse 88 09/14/20 11:18 Resp 18 09/14/20 11:18 BP 123/78 09/14/20 11:18 Pulse Ox 94 09/14/20 08:41 09/13/20 09/14/20 09/14/20 22:59 06:59 14:59 Intake Total 560 / 2500 350 / 2850 700 / 700 Output Total 400 / 2350 1550 / 3900 750 / 750 Balance 160 / 150 -1200 / -1050 -50 / -50 Physical Exam Narrative: EXAM NARRATIVE: General exam is a conversant white male, in no apparent distress Cardiovascular regular rate and rhythm without murmur, no S3 or S4 Lungs clear no wheezing or crackles Abdomen is soft with positive bowel sounds. Slight tenderness suprapubic area Extremities trace bilateral edema, atrophy Urinary Catheter Management^: Culp: Cath Placed During This Visit: yes Reason for Continuing Indwelling Catheter: Chronic Indwelling Urinary Catheter on Admission Urinary Catheter Date of Insertion: 09/12/20 Urinary Catheter Time of Insertion: 14:10 Data : 09/14/20 04:54 09/14/20 04:54 Micro: Microbiology 09/12/20 14:30 Urine Culture - Final Urine Catheterized Yeast 09/12/20 13:08 Blood Culture - Preliminary Blood NEGATIVE TO DATE 09/12/20 13:05 Blood Culture - Preliminary Blood NEGATIVE TO DATE A&P Assessment and plan (1) Hypotension: Cannot rule out sepsis although no fever documented, no tachycardia, no elevated lactic acid. IV fluids discontinued Urine culture at [facility] was polymicrobial, and was not cultured further Continue to hold hydrochlorothiazide Continue to hold Flomax. Urine culture here demonstrates some yeast. Secondary to possible systemic effects I will go ahead and treat with fluconazole. No need for laboratory tomorrow Status: Acute (2) Acute cystitis: Continue vancomycin and Primaxin Add fluconazole as her urine culture is growing yeast Status: Acute Qualifiers: Hematuria presence: without hematuria Qualified Code(s): N30.00 - Acute cystitis without hematuria (3) Hypomagnesemia: Resolved following supplementation Status: Acute (4) Constipation: Senokot Colace Status: Acute Additional A&P Information Mild decrease in platelets. Slightly improved today History of paraparesis with neurogenic bladder. Continue Culp Renal lesion. Outpatient follow-up plan ultrasound Coronary artery disease, continue home medications Type 2 diabetes, sliding scale insulin. Patient refuses diabetic diet. Changed to regular. GERD continue proton pump inhibitor History of DVT, continue Xarelto Multiple other medical problems as listed in his past medical history Full code Xarelto will serve for DVT prophylaxis Attestations Medical Necessity Statement*: Needs continued hospitalization for IV antibiotics secondary to UTI. 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
--- NOTE | 2020-09-14 14:00 | PC.NURSE ---
Rcvd medical records from [facility]. Records given to Dr Montes
[2020-09-14] MEDS: baclofen 10 mg Tablet PO (16:25)
[2020-09-14] MEDS: acetaminophen 325 mg Tablet 650 MG PO (16:25)
[2020-09-14 16:37] LABS: Glucose Point of Care 166 mg/dL (70-110)
[2020-09-14 21:56] LABS: Glucose Point of Care 142 mg/dL (70-110)
[2020-09-15] VITALS: BP 143/79; PULSE 75; RESP 20; TEMP 36.6; O2SAT 96
[2020-09-15 04:00] VITALS: BP 142/73; PULSE 82; RESP 20; TEMP 36.6; O2SAT 95
[2020-09-15 07:00] LABS: Glucose Point of Care 121 mg/dL (70-110)
[2020-09-15 08:00] VITALS: BP 108/68; PULSE 77; RESP 16; TEMP 36.6; O2SAT 94
[2020-09-15] MEDS: atorvastatin 40 mg Tablet PO (08:39)
[2020-09-15] MEDS: pantoprazole DR 40 mg Tablet PO (08:39)
[2020-09-15] MEDS: fluconazole 100 mg Tablet 200 MG PO (08:40)
[2020-09-15] MEDS: rivaroxaban 10 mg Tablet 20 MG PO (08:40)
--- NOTE | 2020-09-15 09:05 | PC.SOCIAL ---
IMM Page 2 of [facility] explained to patient. He verbalizes understanding but states he's ready to go home. Initialed, dated, and timed and placed in chart and copy provided to patient.
--- NOTE | 2020-09-15 09:33 | PM.DCS ---
Discharge Providers Date of Admission: 09/12/20 16:14 Date of Discharge: September 15, 2020 Attending Provider at Admission: Danny Montes MD Attending Provider at Discharge: Danny Montes MD Primary Care Provider: JESE Calvo Diagnoses at Discharge Discharge Diagnosis (1) Hypotension: Status: Acute Permanent problem details: Resolved (2) Acute cystitis: Status: Acute Permanent problem details: Outside urine culture demonstrated multiple organisms, not further cultured. Culture here growing yeast. Qualifiers: Hematuria presence: without hematuria Qualified Code(s): N30.00 - Acute cystitis without hematuria (3) Hypomagnesemia: Status: Acute Permanent problem details: Resolved (4) Constipation: Status: Acute Reason for Visit Reason for Visit: UTI, POSS SEPTIC Hospital Course Hospital Course: Alireza is a 65-year-old white male with history of neurogenic bladder who presented to the emergency department with hypotension. There was concern of UTI associated with hypotension. He had had a recent urine culture, the day prior at an outside ER. He was admitted and given broad-spectrum antibiotics secondary to the significant resistance of organisms that he has had in the past. With IV fluids, IV antibiotics he improved significantly. Urinary catheter was changed. He had no recurrence of hypotension. Urine culture obtained from outside hospital ultimately grew multiple organisms not subcultured. Urine culture at [facility] demonstrated yeast, to be subcultured. After reviewing his previous urine culture results, and that he has yeast in his urine currently he will be discharged on doxycycline 100 mg twice daily for past history of Enterobacter, strep bovis as well as fluconazole for yeast. He will follow-up with his primary care provider, early next week as well as urology. Physical Exam Narrative: EXAM NARRATIVE: General exam no apparent distress Cardiovascular regular rate and rhythm without murmur Lungs clear Abdomen is soft, positive bowel sounds Extremities no cyanosis clubbing or edema. Urinary Catheter Management^: Culp: Cath Placed During This Visit: yes Reason for Continuing Indwelling Catheter: Accurate Measurement of Urinary Output in Critically Ill Patients Urinary Catheter Date of Insertion: 09/12/20 Urinary Catheter Time of Insertion: 14:10 Discharge Data Data Completed and Pending: Completed Studies During Hospitalization Category Date Time Status CT abdomen pelvis w con* [id number] Urge nt Cat Scan 09/12/20 13:40 Completed XR chest 1V arnaldo ble [id number] Urgent Exams 09/12/20 12:15 Completed Pending at discharge Category Date Time Status Blood Culture Sta t Lab 09/12/20 13:08 Results Labs from last 24 hours 09/15/20 09/14/20 09/14/20 06:14 21:01 16:25 POC Glucose 121 142 166 09/14/20 11:26 POC Glucose 138 Vitals: Last Vital Signs Temp 97.9 F 09/15/20 08:00 Pulse 77 09/15/20 08:00 Resp 16 09/15/20 08:00 BP 108/68 09/15/20 08:00 Pulse Ox 94 09/15/20 08:00 Discharge Plan Discharge Patient Disposition: Home Condition: Stable Prescriptions: New fluconazole 100 mg Tablet 200 mg PO DAILY Qty: 12 RF: 0 doxycycline monohydrate 100 mg capsule 100 mg PO BID 10 Days Qty: 20 RF: 0 Continued methenamine hippurate 1 gram tablet 1 g PO BID RF: 0 albuterol sulfate [Ventolin HFA] 90 mcg/actuation HFA aerosol inhaler 2 puff INHALATION Q6H PRN (Reason: Shortness Of Breath) RF: 0 aspirin 81 mg tablet,delayed release (DR/EC) 81 mg PO DAILY RF: 0 Dexilant 60 mg capsule,biphase delayed releas 60 mg PO DAILY 90 Days Qty: 90 RF: 1 Xarelto 20 mg tablet 20 mg PO DAILY 30 Days Qty: 30 RF: 3 Victoza 3-Tristan 0.6 mg/0.1 mL (18 mg/3 mL) pen injector 1.8 mg SUBCUT DAILY 90 Days Qty: 27 RF: 2 rosuvastatin [Crestor] 10 mg tablet 10 mg PO DAILY 90 Days Qty: 90 RF: 1 tamsulosin 0.4 mg capsule 0.8 mg PO DAILY Qty: 60 RF: 2 Tylenol 325 mg Tablet 650 mg PO PRN RF: 0 Senna Plus 8.6-50 mg Tablet 1 tab PO BID PRN (Reason: Constipation) RF: 0 baclofen 10 mg Tablet 10 mg PO PRN RF: 0 nitroglycerin 0.4 mg tablet, sublingual 0.4 mg SUBLINGUAL Q5M PRN (Reason: Chest Pain) RF: 0 hydrochlorothiazide 12.5 mg tablet 12.5 mg PO DAILY RF: 0 Discontinued amoxicillin-pot clavulanate 875-125 mg tablet 1 tab PO BID RF: 0 Discharge Orders: Discharge Order (Routine); Ordered 09/15/20 Ordered By: Danny Montes Referrals: PASCUAL Neely, DRILLING ENGINEERING MANAGER [Primary Care Provider] - 4-7 days Discharge Diet: Usual diet Discharge Activity: Increase activity as tolerated Activity Restrictions/Additional Instructions: Follow-up with your primary care provider early next week Follow-up with urology 2 to 3 weeks May resume your methenamine after completing antibiotics Discharge Attestations Time Spent in Discharge Care*: greater than 30 min Quality Metrics Clinical Quality Measures During this hospital stay, did patient experience: None Coding Level of Care Code Acute Regulatory Assistant for [facility] Fwd Diagnoses Hypotension I95.9 Acute cystitis N30.00 Hematuria presence: without hematuria Hypomagnesemia E83.42 Constipation K59.00
[2020-09-15 11:18] VITALS: BP 140/87; PULSE 78; RESP 16; TEMP 37.2; O2SAT 98
[2020-09-15 11:41] LABS: Glucose Point of Care 189 mg/dL (70-110)
== END 2020-09-15 13:00 | disposition home health service (06) | DRG 872 ==
LOC: ER 15:45 → MEDSURG 16:31
PROVIDERS: Emergency Medicine; Admitting Provider Internal Medicine; PCP Nurse Practitioner Family; Visit Provider Internal Medicine
DX: A41.9 Sepsis, unspecified organism (principal); N30.00 Acute cystitis without hematuria; G82.20 Paraplegia, unspecified; N40.0 Benign prostatic hyperplasia without lower urinary tract symptoms; I25.10 Atherosclerotic heart disease of native coronary artery without angina pectoris; Z95.5 Presence of coronary angioplasty implant and graft; Z79.01 Long term (current) use of anticoagulants; E11.9 Type 2 diabetes mellitus without complications; K21.9 Gastro-esophageal reflux disease without esophagitis; N52.9 Male erectile dysfunction, unspecified; Z86.718 Personal history of other venous thrombosis and embolism; I10 Essential (primary) hypertension; E78.2 Mixed hyperlipidemia; N31.9 Neuromuscular dysfunction of bladder, unspecified; Z87.440 Personal history of urinary (tract) infections; E55.9 Vitamin D deficiency, unspecified; I95.9 Hypotension, unspecified; E83.42 Hypomagnesemia; K59.00 Constipation, unspecified; B37.9 Candidiasis, unspecified; Z79.51 Long term (current) use of inhaled steroids; Z79.82 Long term (current) use of aspirin
CPT/HCPCS: 12345; 36415; 36416; 51702; 71045; 74177; 80048; 80053; 80202; 81001; 82962; 83605; 83690; 83735; 85025; 87040; 87086; 90471; 90686; 90732; 93005; 96372; 99284; J0743; J1815; J2543; J3370; J3475; J7030; J7050; Q9967

== ENCOUNTER → 2020-10-05 07:56 | Outpatient (BNVA) | payer MEDICARE, MEDICAID, SELFPAY | PROVIDERS: PCP Nurse Practitioner Family; Visit Provider Nurse Practitioner Family | DX: N39.0 Urinary tract infection, site not specified (principal); A49.9 Bacterial infection, unspecified | CPT/HCPCS: 81003; 87086 ==

== ENCOUNTER → 2021-01-12 09:36 | Outpatient (BNVA) | payer MEDICARE, MEDICAID, SELFPAY | PROVIDERS: PCP Nurse Practitioner Family; Visit Provider Nurse Practitioner Family | DX: N39.0 Urinary tract infection, site not specified (principal); A49.9 Bacterial infection, unspecified | CPT/HCPCS: 81003; 87077; 87086; 87184 ==

== ENCOUNTER → 2021-02-08 16:23 | Outpatient (BNVA) | payer MEDICARE, MEDICAID, SELFPAY | PROVIDERS: PCP Nurse Practitioner Family; Visit Provider Nurse Practitioner Family | DX: N39.0 Urinary tract infection, site not specified (principal) | CPT/HCPCS: 81003; 87077; 87086; 87184 ==

== ENCOUNTER → 2021-03-15 12:05 | Outpatient (BNVA) | payer MEDICARE, MEDICAID, SELFPAY | PROVIDERS: PCP Nurse Practitioner Family; Visit Provider Family Medicine | DX: R53.1 Weakness (principal); E11.9 Type 2 diabetes mellitus without complications; I95.9 Hypotension, unspecified; Z79.4 Long term (current) use of insulin | CPT/HCPCS: 81003; 87086; 87106 ==

== ENCOUNTER → 2021-03-17 12:05 | Outpatient (BNVA) | payer MEDICARE, MEDICAID, SELFPAY | PROVIDERS: PCP Nurse Practitioner Family; Visit Provider Nurse Practitioner Family | DX: A49.9 Bacterial infection, unspecified (principal); N39.0 Urinary tract infection, site not specified | CPT/HCPCS: 81000 ==

== ENCOUNTER 2021-04-01 19:11 | Inpatient (IN) | payer MEDICARE, MEDICAID, SELFPAY ==
[2021-04-01 19:31] VITALS: BP 83/57; PULSE 106; RESP 17; TEMP 36.8; O2SAT 93; BMI 24.5
--- NOTE | 2021-04-01 20:05 | XRR_ITS ---
PROCEDURE INFORMATION: Exam: XR Chest Exam date and time: 04/01/2021 8:12 PM Age: 65 years old Clinical indication: Other: Hypotension TECHNIQUE: Imaging protocol: XR of the chest. Views: 1 view. COMPARISON: CR XR chest 1V portable [id number] 09/12/2020 12:37 PM FINDINGS: Tubes, catheters and devices: Stable left pacemaker. Lungs: Stable mild COPD . Pleural spaces: Unremarkable. No pleural effusion. No pneumothorax. Heart/Mediastinum: Unremarkable. No cardiomegaly. Bones/joints: Unremarkable. XR/XR chest 1V portable [id number] IMPRESSION: Stable mild COPD .
--- NOTE | 2021-04-01 20:05 | CTR_ITS ---
PROCEDURE INFORMATION: Exam: CT Abdomen And Pelvis With Contrast Exam date and time: 04/01/2021 9:00 PM Age: 65 years old Clinical indication: Fever and nausea and vomiting; Patient HX: N/v fever and bodyaches; Additional info: Sepsis TECHNIQUE: Imaging protocol: Computed tomography of the abdomen and pelvis with contrast. Radiation optimization: All CT scans at this facility use at least one of these dose optimization techniques: automated exposure control; mA and/or kV adjustment per patient size (includes targeted exams where dose is matched to clinical indication); or iterative reconstruction. Contrast material: OMNI 300; Contrast volume: 95 ml; Contrast route: INTRAVENOUS (IV); COMPARISON: CT abdomen pelvis w con* [id number] 09/12/2020 3:22 PM RADIATION DOSE METRICS: Total DLP (mGy-cm): 1454.53 FINDINGS: Liver: Normal. No mass. Gallbladder and bile ducts: Normal. No calcified stones. No ductal dilation. Pancreas: Normal. No ductal dilation. Spleen: Calcified splenic granulomas. Adrenal glands: Normal. No mass. Kidneys and ureters: Right renal simple cyst measuring >1.0 cm . Stomach and bowel: Unremarkable. No obstruction. No mucosal thickening. Appendix: No evidence of appendicitis. Intraperitoneal space: Unremarkable. No free air. No significant fluid collection. Vasculature: Calcification of the abdominal aorta and/or iliac arteries consistent with atherosclerotic vessel disease. Lymph nodes: Unremarkable. No enlarged lymph nodes. Urinary bladder: Culp balloon catheter in the urinary bladder. Reproductive: Unremarkable as visualized. Bones/joints: Multilevel severe facet degenerative change para bilaterally. Soft tissues: Unremarkable. CT/CT abdomen pelvis w con* [id number] IMPRESSION: No acute findings. COMMENTS: Consistent with the [employer]'s Incidental Findings Committee white paper (J Am Daniele Radiol 2018): Any incidental renal lesion less than 1 cm or classified as too small to characterize, or any incidental cystic renal lesion characterized as simple-appearing, is likely benign. No follow-up imaging is recommended for these lesions per consensus recommendations based on imaging criteria. Radiation Dose CTDIVOL = (mGy): DLP = 1454.53 (mGy-cm)
[2021-04-01 20:13] VITALS: BP 72/51; PULSE 108; O2SAT 97
[2021-04-01 20:24] LABS: Basophils % 0.3 %; Eosinophils % 0.1 %; Hematocrit 41.9 % (42.0-52.0); Hemoglobin 13.8 g/dL (11.7-16.6); Lymphocytes # 0.9 10^3/uL (0.8-4.8); Lymphocytes % 6.2 %; Mean Corpuscular HGB Conc 32.9 g/dL (30.0-36.0); Mean Corpuscular Hemoglobin 27.4 pg (28.0-34.0); Mean Corpuscular Volume 83.1 fL (80-94); Mean Platelet Volume 10.5 fL (7.4-10.4); Monocytes # 0.9 10^3/uL (0.2-0.9); Monocytes % 6.3 %; Neutrophils # 12.71 10^3/uL (1.8-7.7); Neutrophils % 86.6 %; Nucleated Red Blood Cells % 0 %; Platelet Count 168 10^3/cmm (130-400); Red Blood Count 5.04 10^6/uL (4.1-5.3); Red Cell Distribution Width 13.7 % (12.1-15.1); White Blood Count 14.7 10^3/uL (4.0-10.0)
[2021-04-01] MEDS: sodium chloride 0.9% 1,000 ML 999 ML IV (20:31)
[2021-04-01 20:39] LABS: Alanine Aminotransferase 24 U/L (0-41); Albumin Level 3.8 g/dL (3.5-5.2); Alkaline Phosphatase 161 IU/L (40-130); Blood Urea Nitrogen 14 mg/dL (8-23); C Reactive Protein 27.3 mg/L (0.0-4.9); Calcium 8.3 mg/dL (8.5-10.5); Carbon Dioxide 23 mmol/L (22-29); Chloride 98 mmol/L (98-107); Creatinine Clr Calc Pharmacy 97.7298; Globulin 3.2 g/dL (1.3-4.6); Glomerular Filtration Rate 112.5 mL/min (90-130); Glucose 295 mg/dL (65-115); Lipase 16 U/L (13-60); Osmolality Calculated 289 mOsm/kg (285-295); Sodium 134 mmol/L (136-145); Total Bilirubin 1.3 mg/dL (0.15-1.2)
[2021-04-01 20:40] LABS: Lactate (Lactic Acid level) 2.3 mmol/L (0.5-2.2)
[2021-04-01 20:43] LABS: Anion Gap 17.5 (5-19); Aspartate Amino Transferase 29 U/L (0-40); Potassium 4.5 mmol/L (3.5-5.1)
[2021-04-01 21:02] VITALS: BP 118/72; PULSE 98; O2SAT 99
[2021-04-01] MEDS: iohexol 300 mg/mL 100 mL Btl IV (21:11)
[2021-04-01 21:14] LABS: Bilirubin Urine Neg (Negative); Blood Urine 3+ (Negative); Glucose Urine UA 2+ (Normal); Ketones Urine 1+ (Negative); Nitrate Urine Negative (Negative); Protein Urine 2+ (Negative); Urine Color Yellow (Yellow); Urobilinogen Urine 1 mg/dL (Negative); pH Urine 5 (5-7)
[2021-04-01 21:15] LABS: Add Urine Microscopic? YES; Leukocyte Esterase Urine 2+ (Negative)
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
[2021-04-01 21:24] LABS: Add Urine Culture? Yes; Bacteria Urine 4+ /hpf; Other Sediment, Urine BUD YEAST W/HYPHAE; RBC Urine TOO NUMEROUS TO CNT /hpf (0-2); Squamous Epithelial Cell Urine 0-4 /hpf (0-5); WBC Urine TOO NUMEROUS TO CNT /hpf (0-5)
[2021-04-01] MEDS: piperacillin-tazobactam 3.375 GM in sodium chloride 0.9% (plus) 50 ML IV (22:05)
[2021-04-01] MEDS: ondansetron 2 mg/ML SDV 2 mL 4 MG IVP (22:27)
[2021-04-01] MEDS: acetaminophen 325 mg Tablet 650 MG PO (22:27)
[2021-04-01 22:30] VITALS: BP 138/93; PULSE 97; O2SAT 90
--- NOTE | 2021-04-01 23:24 | PC.NURSE ---
report called to [facility] at [phone]
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
[2021-04-02] VITALS (7 sets, daily range): BP systolic 100–152; BP diastolic 68–90; PULSE 69–100; RESP 16–18; TEMP 36.7–38.1; O2SAT 91–97
[2021-04-02] MEDS: enoxaparin 30 mg/0.3 mL Syringe SUBCUT (01:05)
[2021-04-02] MEDS: sodium chloride 0.9% 1,000 ML 75 ML IV ×2 (01:05→13:37)
[2021-04-02] MEDS: piperacillin-tazobactam 4.5 GM in sodium chloride 0.9% (plus) 50 ML IV ×3 (04:47→20:21)
--- NOTE | 2021-04-02 08:23 | PC.NURSE ---
Notified Dr Muñoz that patient is requesting Baclofen for muscle spams and his home dose is 10mg PO PRN
--- NOTE | 2021-04-02 10:46 | PC.NURSE ---
Rcvd verbal order from Dr Pavon for Baclofen 10mg PO Daily PRN and Tylenol 650mg PO Daily PRN. Clerical Manager put orders in.
[2021-04-02] MEDS: baclofen 10 mg Tablet PO (10:58)
[2021-04-02] MEDS: acetaminophen 325 mg Tablet 650 MG PO (10:59)
[2021-04-02] MEDS: fluconazole premix 200 MG/100 ML PREMIX 100 MG IV (13:36)
--- NOTE | 2021-04-02 14:24 | P.PN_ITS ---
Subjective Subjective: Interval history: Patient was seen and examined this morning, no acute events overnight, continues to remain afebrile, hemodynamically.He was complaining of b/l l/e pain as well as muscle cramp. Vitals/I&O/Wt Last Vital Signs Temp 98.7 F 04/02/21 12:00 Pulse 69 04/02/21 12:00 Resp 18 04/02/21 12:00 BP 101/69 04/02/21 12:00 Pulse Ox 97 04/02/21 04:00 04/01/21 04/02/21 04/02/21 22:59 06:59 14:59 Intake Total 1050 / 1050 1350 / 1350 Output Total 600 / 600 Balance 1050 / 1050 -600 / 450 1350 / 1350 Weight last 48 hrs Weight 79.832 kg Physical Exam Const: COMMON NORMALS: patient oriented x3 HENMT: COMMON NORMALS: normocephalic and atraumatic HEAD & SCALP: normocephalic and atraumatic Resp: COMMON NORMALS: clear to auscultation bilaterally AUSCULTATION: clear to auscultation bilaterally Cardio: COMMON NORMALS: regular rate, regular rhythm, S1 normal heart sound present, S2 normal heart sound present, No gallops present (Cardio), No murmurs present (Cardio), No rub (Cardio) and Peripheral pulses 2+ throughout RATE: regular rate RHYTHM: regular rhythm HEART SOUNDS: S1 normal heart sound present and S2 normal heart sound present PERIPHERAL PULSES: Peripheral pulses 2+ throughout GI: COMMON NORMALS: Normal to inspection, nondistended, normoactive bowel sounds present, Soft to palpation, non-tender, No hepatosplenomegaly present and no masses AUSCULTATION: Yes normoactive bowel sounds PALPATION: Yes Soft to palpation and Yes No hepatosplenomegaly present RECTAL EXAM: Yes deferred : COMMON NORMALS: Yes no CVA tenderness BLADDER/KIDNEY EXAM: Yes no CVA tenderness Back/Pelvis: COMMON NORMALS: no CVA tenderness Extremity: COMMON NORMALS: no clubbing, cyanosis or edema and no pedal edema Neuro: COMMON NORMALS: patient oriented x3 Data : 04/01/21 20:15 04/01/21 20:15 Micro: Microbiology 04/01/21 20:26 Blood Culture - Preliminary Blood SPECIMEN COLLECTED 04/01/21 20:15 Blood Culture - Preliminary Blood SPECIMEN COLLECTED A&P Assessment and plan (1) Sepsis secondary to UTI: Sepsis: As the patient has fever , tachycardia , leukocytosis, hypotension on admission and UTI. Blood culture: Urine culture: Lactic acid: 2.3 Procalcitonin: CT abdomen pelvis without contrast:No acute findings. Xray chest :No acute findings Continue Zosyn Fluconzole 200 mg I.V daily for 5 days as U/A is showing yeast. Follow culture. Status: Acute (2) UTI (urinary tract infection): Complicated Recurrent UTI Patient has h/o h/o recurrent UTI ,including ESBL UTI in past. Status: Acute Qualifiers: Encounter type: initial encounter Indwelling urinary catheter type: in dwelling urethral catheter Urinary tract infection type: catheter-associated UTI Qualified Code(s): T83.511A - Infection and inflammatory reaction due to indwelling urethral catheter, initial encounter; N39.0 - Urinary tract infection, site not specified (3) Neurogenic bladder: resume home medications. Culp catheter is changed every month.Last catheter change 3 weeks ago. Status: Chronic (4) DVT (deep venous thrombosis): H/O DVT Xarelto 20 mg p.o. daily Status: Acute (5) CAD (coronary artery disease): restart medication in AM Status: Acute Qualifiers: Associated angina: angina presence unspecified Coronary Disease- Associated Artery/Lesion type: unspecified vessel or lesion type [place] vs. transplanted heart: [place] heart Qualified Code(s): I25.10 - Atherosclerotic heart disease of [place] coronary artery without angina pectoris (6) Diabetes mellitus, type II: Low-dose sliding scale insulin FSG Status: Chronic Qualifiers: Diabetes mellitus complication status: without complication Diabetes mellitus [facility] insulin use: with extermination inspector use Qualified Code(s): E11.9 - Type 2 diabetes mellitus without complications; Z79.4 - rn long term care (current) use of insulin Attestations Medical Necessity Statement*: Patient needs to be in hospital for management of sepsis. Coding Level of Care Code Acute Audit Tech for [facility] Fwd Exam Detailed Diagnoses Sepsis secondary to UTI A41.9; N39.0 UTI (urinary tract infection) T83.511A; N39.0 Encounter type: initial encounter Indwelling urinary catheter type: indwelling urethral catheter Urinary tract infection type: catheter-associated UTI Neurogenic bladder N31.9 DVT (deep venous thrombosis) I82.409 CAD (coronary artery disease) I25.10 Associated angina: angina presence unspecified Coronary Disease-Associated Artery/Lesion type: unspecified vessel or lesion type [place] vs. transplanted heart: [place] heart Diabetes mellitus, type II E11.9; Z79.4 Diabetes mellitus complication status: without complication Diabetes mellitus extermination inspector insulin use: with extermination inspector use
--- NOTE | 2021-04-02 17:16 | PC.NURSE ---
patient requesting additional pain medication and cream for legs to help with aching. Rcvd verbal order from Dr Pavon for Tramadol 50mg PO Q6H PRN and Voltaren. real estate underwriter put orders in.
[2021-04-02] MEDS: TRAMadol 50 mg Tablet PO (20:23)
[2021-04-02 20:37] LABS: Glucose Point of Care 257 mg/dL (70-110)
[2021-04-03] VITALS (7 sets, daily range): BP systolic 86–141; BP diastolic 57–83; PULSE 80–94; RESP 16–18; TEMP 36.8–38.4; O2SAT 94–98
[2021-04-03] MEDS: trazodone 50 mg Tablet PO (02:57)
[2021-04-03] MEDS: TRAMadol 50 mg Tablet PO (02:58)
[2021-04-03] MEDS: sodium chloride 0.9% 1,000 ML 75 ML IV ×2 (02:59→15:03)
[2021-04-03] MEDS: ondansetron 2 mg/ML SDV 2 mL 4 MG IVP (03:19)
[2021-04-03 04:43] LABS: Basophils % 0.3 %; Eosinophils % 0.2 %; Hematocrit 37.9 % (42.0-52.0); Hemoglobin 12.2 g/dL (11.7-16.6); Lymphocytes # 1.4 10^3/uL (0.8-4.8); Lymphocytes % 12.8 %; Mean Corpuscular HGB Conc 32.2 g/dL (30.0-36.0); Mean Corpuscular Hemoglobin 27.2 pg (28.0-34.0); Mean Corpuscular Volume 84.6 fL (80-94); Mean Platelet Volume 10.7 fL (7.4-10.4); Monocytes # 1.5 10^3/uL (0.2-0.9); Monocytes % 13.4 %; Neutrophils # 8.11 10^3/uL (1.8-7.7); Neutrophils % 72.6 %; Nucleated Red Blood Cells % 0 %; Platelet Count 143 10^3/cmm (130-400); Red Blood Count 4.48 10^6/uL (4.1-5.3); Red Cell Distribution Width 13.5 % (12.1-15.1); White Blood Count 11.2 10^3/uL (4.0-10.0)
[2021-04-03] MEDS: piperacillin-tazobactam 4.5 GM in sodium chloride 0.9% (plus) 50 ML IV ×2 (04:45→11:25)
[2021-04-03] MEDS: acetaminophen 325 mg Tablet 650 MG PO ×3 (04:55→17:28)
[2021-04-03 05:17] LABS: Procalcitonin 0.16 ng/mL (0-0.5)
[2021-04-03 05:28] LABS: Blood Urea Nitrogen 10 mg/dL (8-23); Calcium 7.8 mg/dL (8.5-10.5); Carbon Dioxide 19 mmol/L (22-29); Chloride 99 mmol/L (98-107); Creatinine Clr Calc Pharmacy 97.7298; Glomerular Filtration Rate 165.9 mL/min (90-130); Glucose 126 mg/dL (65-115); Osmolality Calculated 273 mOsm/kg (285-295); Sodium 131 mmol/L (136-145)
[2021-04-03 05:30] LABS: Anion Gap 16.8 (5-19); Potassium 3.8 mmol/L (3.5-5.1)
[2021-04-03 06:58] LABS: Glucose Point of Care 143 mg/dL (70-110)
[2021-04-03] MEDS: rivaroxaban 10 mg Tablet 20 MG PO (08:48)
[2021-04-03] MEDS: diclofenac 1% Topical Gel 100 gm 1 APPLIC TOPICAL ×4 (11:25→20:47)
[2021-04-03 12:06] LABS: Glucose Point of Care 170 mg/dL (70-110)
[2021-04-03] MEDS: fluconazole premix 200 MG/100 ML PREMIX 100 MG IV (15:05)
[2021-04-03 16:17] LABS: Glucose Point of Care 259 mg/dL (70-110)
--- NOTE | 2021-04-03 16:44 | P.PN_ITS ---
Subjective Subjective: Interval history: Leukocytosis at 11.2, patient is afebrile, urine culture showing gram-negative humberto, pending identification. Patient states he does not feel any significant improvement compared to previous days.Additionally reports today that he is unable to move his right lower extremity, holding it in a flexed position at the knee and hip joint. Medications: Reviewed: Yes Vitals/I&O/Wt Last Vital Signs Temp 98.8 F 04/03/21 15:39 Pulse 82 04/03/21 15:39 Resp 18 04/03/21 15:39 BP 116/72 04/03/21 15:39 Pulse Ox 95 04/03/21 15:39 04/03/21 04/03/21 04/03/21 06:59 14:59 22:59 Intake Total 1050 / 2910 650 / 650 1055 / 1705 Output Total 2400 / 2400 Balance 1050 / 2910 650 / 650 -1345 / -695 Weight last 48 hrs Weight 79.832 kg Physical Exam Narrative: EXAM NARRATIVE: GEN: Awake, alert and oriented, no acute distress CVS: S1S2 N RS: CTA B/L Abd: Soft, nt/nd , bs+ EXT: Holding his right lower extremity in a flexed position at the hip and knee joint Data : 04/03/21 03:53 04/03/21 03:53 Micro: Microbiology 04/01/21 20:59 Urine Culture - Preliminary Urine,Clean Catch Gram Negative Rods 04/01/21 20:26 Blood Culture - Preliminary Blood NEGATIVE TO DATE 04/01/21 20:15 Blood Culture - Preliminary Blood NEGATIVE TO DATE A&P Assessment and plan (1) Sepsis secondary to UTI: Sepsis on presentation: As the patient has fever , tachycardia , leukocytosis, hypotension on admission and UTI. Blood culture: No growth to date Urine culture: Preliminary with gram-negative humberto, awaiting identification CT abdomen pelvis without contrast:No acute findings. Xray chest :No acute findings Currently on empiric treatment with Zosyn, prior history of ESBL Klebsiella UTI, discontinue Zosyn, start Primaxin Discontinue IV fluconazole, switch to oral Status: Acute (2) UTI (urinary tract infection): Complicated Recurrent UTI due to neurogenic bladder, currently with Culp in place Patient has h/o h/o recurrent UTI ,including ESBL UTI in past. Status: Acute Qualifiers: Encounter type: initial encounter Indwelling urinary catheter type: indwelling urethral catheter Urinary tract infection type: catheter-associated UTI Qualified Code(s): T83.511A - Infection and inflammatory reaction due to indwelling urethral catheter, initial encounter; N39.0 - Urinary tract infection, site not specified (3) Neurogenic bladder: resume home medications. Culp catheter is changed every month.Last catheter change 3 weeks ago. Status: Chronic (4) DVT (deep venous thrombosis): H/O DVT Currently on Xarelto 20 mg p.o. daily Holding his right lower extremity in a flexed position, states this is stiff, check x-ray of the hip and knee, lower suspicion for DVT given that patient is already on Xarelto. Status: Acute (5) CAD (coronary artery disease): Resume home doses of aspirin, statin Status: Acute Qualifiers: Coronary Disease-Associated Artery/Lesion type: unspecified vessel or lesion type [place] vs. transplanted heart: [place] heart Associated angina: angina presence unspecified Qualified Code(s): I25.10 - Atherosclerotic heart disease of [place] coronary artery without angina pectoris (6) Diabetes mellitus, type II: Low-dose sliding scale insulin Status: Chronic Qualifiers: Diabetes mellitus professor of communication arts insulin use: with mcc use Diabetes mellitus complication status: without complication Qualified Code(s): E11.9 - Type 2 diabetes mellitus without complications; Z79.4 - penology teacher (current) use of insulin Attestations Medical Necessity Statement*: Change antibiotics from Zosyn to primaxin until results of urine culture are obtained, x-ray of the extremities today Coding Level of Care Code Acute Product Control And Logistics Analyst for [facility] [place] Diagnoses Sepsis secondary to UTI A41.9; N39.0 UTI (urinary tract infection) T83.511A; N39.0 Encounter type: initial encounter Indwelling urinary catheter type: indwelling urethral catheter Urinary tract infection type: catheter-associated UTI Neurogenic bladder N31.9 DVT (deep venous thrombosis) I82.409 CAD (coronary artery disease) I25.10 Coronary Disease-Associated Artery/Lesion type: unspecified vessel or lesion type [place] vs. transplanted heart: [place] heart Associated angina: angina presence unspecified Diabetes mellitus, type II E11.9; Z79.4 Diabetes mellitus mcc insulin use: with mcc use Diabetes mellitus complication status: without complication
--- NOTE | 2021-04-03 16:56 | XRR_ITS ---
PROCEDURE INFORMATION: Exam: XR Right Hip Exam date and time: 04/03/2021 5:01 PM Age: 65 years old Clinical indication: Hip pain; Right hip; Additional info: Restricted rom at right hip x 3 days TECHNIQUE: Imaging protocol: XR Right hip. Views: 1 view hip with pelvis when performed. COMPARISON: CT abdomen pelvis w con* [id number] 04/01/2021 9:09 PM FINDINGS: Bones/joints: Single view of the right hip. Moderate degenerative changes suspected. A fracture is not clearly visualized. Consider additional views or CT if indicated. Soft tissues: Unremarkable. XR/XR hip RT 1V wo/w pel 11030 IMPRESSION: Single view of the right hip. Moderate degenerative changes suspected. A fracture is not clearly visualized. Consider additional views or CT if indicated.
[2021-04-03] MEDS: baclofen 10 mg Tablet PO (17:28)
[2021-04-03 20:24] LABS: Glucose Point of Care 151 mg/dL (70-110)
--- NOTE | 2021-04-04 | USCV_ITS ---
Ablation Guidance Arnie Butler Age: 65 Gender: M : 1955 Exam Date: 04/04/2021 06:41 Ordering Phys: Marizol Chavez MD Technologist: Mili Herrera Exam Location: [facility] [place] Indication: HX DVT RT LEG HISTORY: History of deep venous thrombosis. PROCEDURES: Venous duplex imaging was performed in bilateral lower extremities. The venous duplex Doppler examination of both lower extremities was performed in the standard fashion. The following venous structures were evaluated: common femoral vein, profunda vein, proximal portion of the greater saphenous vein, superficial femoral vein, and the popliteal vein. FINDINGS: There appears to be residual chronic right leg DVT beginning at the CFV. Flow obtained throughout right veins. Left venous structures appear compressible and free of thrombus. CONCLUSIONS Chronic appearing Right lower extremity DVT at the CFV extinding into femoral vein and popliteal. Additional chronic appearing changes in the calf veins. No evidence of left lower extremity DVT. Lizandro Mcmahon MD (Electronically Signed) Final Date: 04 Apr 2021 12:29 S
[2021-04-04 04:00] VITALS: BP 120/74; PULSE 79; RESP 16; TEMP 37.5; O2SAT 96
[2021-04-04 06:26] LABS: Basophils % 0.4 %; Eosinophils # 0.1 10^3/uL (0.0-0.8); Hematocrit 39.7 % (42.0-52.0); Hemoglobin 12.6 g/dL (11.7-16.6); Lymphocytes # 1.3 10^3/uL (0.8-4.8); Lymphocytes % 18.9 %; Mean Corpuscular HGB Conc 31.7 g/dL (30.0-36.0); Mean Corpuscular Hemoglobin 26.8 pg (28.0-34.0); Mean Corpuscular Volume 84.5 fL (80-94); Mean Platelet Volume 11.1 fL (7.4-10.4); Monocytes # 1.1 10^3/uL (0.2-0.9); Monocytes % 15.9 %; Neutrophils # 4.41 10^3/uL (1.8-7.7); Neutrophils % 62.9 %; Nucleated Red Blood Cells % 0 %; Platelet Count 123 10^3/cmm (130-400); Red Cell Distribution Width 13.7 % (12.1-15.1)
[2021-04-04 06:31] LABS: Glucose Point of Care 120 mg/dL (70-110)
[2021-04-04 06:44] LABS: Alanine Aminotransferase 22 U/L (0-41); Albumin Level 3.1 g/dL (3.5-5.2); Alkaline Phosphatase 136 IU/L (40-130); Aspartate Amino Transferase 27 U/L (0-40); Blood Urea Nitrogen 11 mg/dL (8-23); Calcium 8.2 mg/dL (8.5-10.5); Carbon Dioxide 23 mmol/L (22-29); Chloride 103 mmol/L (98-107); Globulin 2.8 g/dL (1.3-4.6); Glomerular Filtration Rate 165.9 mL/min (90-130); Glucose 112 mg/dL (65-115); Osmolality Calculated 282 mOsm/kg (285-295); Sodium 136 mmol/L (136-145); Total Bilirubin 0.9 mg/dL (0.15-1.2); Total Protein 5.9 g/dL (6.6-8.7)
[2021-04-04 06:48] LABS: Creatinine Clr Calc Pharmacy 97.7298
[2021-04-04 06:49] LABS: Anion Gap 14.2 (5-19); Potassium 4.2 mmol/L (3.5-5.1)
[2021-04-04 08:00] VITALS: BP 127/81; PULSE 85; RESP 18; TEMP 37; O2SAT 96
[2021-04-04] MEDS: aspirin 81 mg EC Tablet PO (08:31)
[2021-04-04] MEDS: rivaroxaban 10 mg Tablet 20 MG PO (08:32)
[2021-04-04] MEDS: diclofenac 1% Topical Gel 100 gm 1 APPLIC TOPICAL ×4 (08:32→22:18)
[2021-04-04] MEDS: fluconazole 100 mg Tablet PO (08:32)
[2021-04-04] MEDS: atorvastatin 40 mg Tablet PO (08:32)
[2021-04-04] MEDS: tamsulosin 0.4 mg Capsule 0.8 MG PO (08:32)
[2021-04-04] MEDS: pantoprazole DR 40 mg Tablet PO (08:32)
--- NOTE | 2021-04-04 09:55 | PC.SOCIAL ---
IMM Update Pg. 2 of IMM updated and reviewed with patient who verbalized understanding. Copy provided.
[2021-04-04 11:03] LABS: Glucose Point of Care 189 mg/dL (70-110)
[2021-04-04 11:52] VITALS: BP 100/61; PULSE 95; RESP 18; TEMP 37.2; O2SAT 96
--- NOTE | 2021-04-04 14:16 | PM.PN ---
Subjective Subjective: Interval history: Leukocytosis resolved, no acute interim events, urine culture now identifies Klebsiella pneumonia ESBL, patient had been switched to Primaxin last evening. Medications: Reviewed: Yes Vitals/I&O/Wt Last Vital Signs Temp 99.0 F 04/04/21 11:52 Pulse 95 04/04/21 11:52 Resp 18 04/04/21 11:52 BP 100/61 04/04/21 11:52 Pulse Ox 96 04/04/21 11:52 04/03/21 04/04/21 04/04/21 22:59 06:59 14:59 Intake Total 1550 / 2200 200 / 2400 580 / 580 Output Total 2600 / 2600 1000 / 3600 Balance -1050 / -400 -800 / -1200 580 / 580 Physical Exam Narrative: EXAM NARRATIVE: GEN: Awake, alert and oriented, no acute distress CVS: S1S2 N RS: CTA B/L Abd: Soft, nt/nd , bs+ EXT: Holding his right lower extremity in a flexed position at the hip and knee joint Data : 04/04/21 04:55 04/04/21 04:55 Micro: Microbiology 04/01/21 20:59 Urine Culture - Final Urine,Clean Catch Klebsiella pneumonia esbl A&P Assessment and plan (1) Sepsis secondary to UTI: Sepsis on presentation: As the patient has fever , tachycardia , leukocytosis, hypotension on admission and UTI. Blood culture: No growth to date Urine culture: Now identified as Klebsiella ESBL, no good oral option to transition patient, will plan for 5 days of Primaxin course and then discharged home. CT abdomen pelvis without contrast:No acute findings. Xray chest :No acute findings Culp was changed upon admission. Status: Acute (2) UTI (urinary tract infection): Complicated Recurrent UTI due to neurogenic bladder, currently with Culp in place Patient has h/o h/o recurrent UTI ,including ESBL UTI in past. Status: Acute Qualifiers: Encounter type: initial encounter Indwelling urinary catheter type: indwelling urethral catheter Urinary tract infection type: catheter-associated UTI Qualified Code(s): T83.511A - Infection and inflammatory reaction due to indwelling urethral catheter, initial encounter; N39.0 - Urinary tract infection, site not specified (3) Neurogenic bladder: resume home medications. Culp catheter is changed every month.Last catheter change 3 weeks ago. Status: Chronic (4) DVT (deep venous thrombosis): H/O DVT Currently on Xarelto 20 mg p.o. daily Holding his right lower extremity in a flexed position, states this is stiff, check x-ray of the hip and knee, lower suspicion for DVT given that patient is already on Xarelto. Status: Acute (5) CAD (coronary artery disease): Resume home doses of aspirin, statin Status: Acute Qualifiers: Coronary Disease-Associated Artery/Lesion type: unspecified vessel or lesion type [place] vs. 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 Coding Level of Care Code Acute Retail Helper for [facility] [employer] Fwd Diagnoses Sepsis secondary to UTI A41.9; N39.0 UTI (urinary tract infection) T83.511A; N39.0 Encounter type: initial encounter Indwelling urinary catheter type: indwelling urethral catheter Urinary tract infection type: catheter-associated UTI Neurogenic bladder N31.9 DVT (deep venous thrombosis) I82.409 CAD (coronary artery disease) I25.10 Coronary Disease-Associated Artery/Lesion type: unspecified vessel or lesion type [place] vs. transplanted heart: [place] heart Associated angina: angina presence unspecified Diabetes mellitus, type II E11.9; Z79.4 Diabetes mellitus sediment remediation consultant insulin use: with longterm use Diabetes mellitus complication status: without complication
[2021-04-04 15:41] VITALS: BP 109/70; PULSE 86; RESP 18; TEMP 37.6; O2SAT 95
[2021-04-04] MEDS: lanolin oint 7 gm 1 APPLIC TOPICAL (16:16)
[2021-04-04] MEDS: acetaminophen 325 mg Tablet 650 MG PO (16:18)
[2021-04-04 17:07] LABS: Glucose Point of Care 249 mg/dL (70-110)
[2021-04-04] MEDS: ondansetron 2 mg/ML SDV 2 mL 4 MG IVP (17:49)
[2021-04-04] MEDS: sennosides-docusate Tablet 1 TAB PO (17:49)
[2021-04-04 17:50] VITALS: BP 125/81; PULSE 91; RESP 18; TEMP 37.6; O2SAT 94
--- NOTE | 2021-04-04 17:52 | PC.NURSE ---
patient states he is having throbbing chest pain and nausea. notified Dr Chavez and administered zofran for nausea.
--- NOTE | 2021-04-04 18:07 | ECG_ITS ---
[facility] ED Test Date: 2021-04-04 Pat Name: Arnie Butler Department: Room: 253 Gender: Male Dungeon Master: : 1955 Requested By: Marizol Chavez Order Number: [id number] Lopez MD: Kiya Franklin M.D. Measurements Intervals [place] Rate: 93 P: [place]: QRS: 145 QRSD: 93 T: 0 QT: 342 QTc: 426 Interpretive Statements ATRIAL FIBRILLATION POSSIBLE RIGHT VENTRICULAR HYPERTROPHY [SOME/ALL OF: PROMINENT R IN V1, LATE TRANSITION, RAD, NORY, SSS] SEPTAL MYOCARDIAL INFARCTION [40+ ms Q WAVE IN V1/V2], OF INDETERMINATE AGE Compared to ECG 09/12/2020 12:59:25 No significant changes Electronically Signed On 04-05-2021 6:47:09 CDT by Kiya Franklin M.D. [email or web address] Gaxiolamemorial hospital at gulfportProgrameterselect medical [facility] [id number]
[2021-04-04 19:43] VITALS: BP 113/72; PULSE 80; RESP 20; TEMP 37.2; O2SAT 97
[2021-04-04 20:00] LABS: Troponin(5th) Baseline 15 ng/L (0-15)
--- NOTE | 2021-04-04 20:07 | ECG_ITS ---
[facility] ED Test Date: 2021-04-05 Pat Name: Arnie Butler Department: Room: 253 Gender: Male Farrowing Worker: : 1955 Requested By: Marizol Chavez Order Number: [id number] Lopez MD: Kiya Franklin M.D. Measurements Intervals [place] Rate: 73 P: [place]: QRS: 73 QRSD: 92 T: 60 QT: 362 QTc: 400 Interpretive Statements ATRIAL FIBRILLATION LOW QRS VOLTAGE IN PRECORDIAL LEADS [QRS DEFLECTION < 1.0 mV IN CHEST LEADS] ABNORMAL RHYTHM ECG Compared to ECG 04/05/2021 05:06:54 Ventricular-paced complex(es) or rhythm no longer present Electronically Signed On 04-11-2021 18:43:19 CDT by Kiya Franklin M.D. [id number]
[2021-04-04 20:27] LABS: Glucose Point of Care 193 mg/dL (70-110)
[2021-04-04 21:48] LABS: Troponin 5 2HR 15.14 ng/L (0-15); Troponin 5 2HR Delta 0.14 ABS# (0-10)
--- NOTE | 2021-04-04 23:09 | PC.NURSE ---
Urine leaked around catheter.
[2021-04-05] VITALS: BP 100/58; PULSE 81; RESP 16; TEMP 36.5; O2SAT 96
--- NOTE | 2021-04-05 00:07 | ECG_ITS ---
[facility] ED Test Date: 2021-04-05 Pat Name: Arnie Butler Department: Room: 253 Gender: Male Sales Training Manager: : 1955 Requested By: Marizol Chavez Order Number: [id number] Lopez MD: Kiya Franklin M.D. Measurements Intervals [place] Rate: 59 P: [place]: QRS: 73 QRSD: 84 T: 63 QT: 357 QTc: 354 Interpretive Statements ATRIAL FIBRILLATION WITH DEMAND VENTRICULAR PACING LOW QRS VOLTAGE IN PRECORDIAL LEADS [QRS DEFLECTION < 1.0 mV IN CHEST LEADS] Compared to ECG 04/05/2021 05:06:07 Myocardial infarct finding no longer present Electronically Signed On 04-15-2021 9:57:39 CDT by Kiya Franklin M.D. [id number]
[2021-04-05 03:53] VITALS: BP 106/54; PULSE 73; RESP 16; TEMP 36.1
[2021-04-05 06:34] LABS: Glucose Point of Care 199 mg/dL (70-110)
[2021-04-05 07:50] VITALS: BP 100/64; PULSE 89; RESP 18; TEMP 36.6; O2SAT 96
[2021-04-05] MEDS: tamsulosin 0.4 mg Capsule 0.8 MG PO (08:48)
[2021-04-05] MEDS: fluconazole 100 mg Tablet PO (08:48)
[2021-04-05] MEDS: aspirin 81 mg EC Tablet PO (08:48)
[2021-04-05] MEDS: rivaroxaban 10 mg Tablet 20 MG PO (08:48)
[2021-04-05] MEDS: atorvastatin 40 mg Tablet PO (08:49)
[2021-04-05] MEDS: pantoprazole DR 40 mg Tablet PO (08:50)
[2021-04-05] MEDS: diclofenac 1% Topical Gel 100 gm 1 APPLIC TOPICAL ×4 (09:26→20:32)
--- NOTE | 2021-04-05 11:15 | PM.PN ---
Subjective Subjective: Interval history: No new complaints today. Yesterday evening patient had complained of chest pain following which EKG and troponin was performed, both of which these were negative for ACS. Patient remains afebrile and hemodynamically stable. Medications: Reviewed: Yes Vitals/I&O/Wt Last Vital Signs Temp 97.8 F 04/05/21 07:50 Pulse 89 04/05/21 07:50 Resp 18 04/05/21 07:50 BP 100/64 04/05/21 07:50 Pulse Ox 96 04/05/21 07:50 04/04/21 04/05/21 04/05/21 22:59 06:59 14:59 Intake Total 580 / 1160 660 / 1820 720 / 720 Output Total 1300 / 1300 550 / 1850 Balance -720 / -140 110 / -30 720 / 720 Physical Exam Narrative: EXAM NARRATIVE: GEN: Awake, alert and oriented, no acute distress CVS: S1S2 N RS: CTA B/L Abd: Soft, nt/nd , bs+ ELECTRONICS RECYCLER: no focal neuro deficits Data : 04/04/21 04:55 04/04/21 04:55 Micro: Microbiology 04/01/21 20:59 Urine Culture - Final Urine,Clean Catch Klebsiella pneumonia esbl A&P Assessment and plan (1) Sepsis secondary to UTI: Sepsis on presentation: As the patient has fever , tachycardia , leukocytosis, hypotension on admission and UTI. Blood culture: No growth to date Urine culture: Now identified as Klebsiella ESBL, no good oral option to transition patient, will plan for 5 days of Primaxin course and then discharged home. CT abdomen pelvis without contrast:No acute findings. Xray chest :No acute findings Culp was changed upon admission. Status: Acute (2) UTI (urinary tract infection): Complicated Recurrent UTI due to neurogenic bladder, currently with Culp in place Patient has h/o h/o recurrent UTI ,including ESBL UTI in past. Status: Acute Qualifiers: Encounter type: initial encounter Indwelling urinary catheter type: indwelling urethral catheter Urinary tract infection type: catheter-associated UTI Qualified Code(s): T83.511A - Infection and inflammatory reaction due to indwelling urethral catheter, initial encounter; N39.0 - Urinary tract infection, site not specified (3) Neurogenic bladder: resume home medications. Culp catheter is changed every month.Last catheter change 3 weeks ago. Status: Chronic (4) DVT (deep venous thrombosis): H/O DVT Currently on Xarelto 20 mg p.o. daily Holding his right lower extremity in a flexed position, states this is stiff, check x-ray of the hip and knee, lower suspicion for DVT given that patient is already on Xarelto. Status: Acute (5) CAD (coronary artery disease): Resume home doses of aspirin, statin Status: Acute Qualifiers: Coronary Disease-Associated Artery/Lesion type: unspecified vessel or lesion type [place] vs. 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 insulin Attestations Medical Necessity Statement*: needs to stay inpatient to complete 5 days of primaxin fro ESBL UTI Coding Level of Care Code Acute Agency Director for g Fwd Diagnoses Sepsis secondary to UTI A41.9; N39.0 UTI (urinary tract infection) T83.511A; N39.0 Encounter type: initial encounter Indwelling urinary catheter type: indwelling urethral catheter Urinary tract infection type: catheter-associated UTI Neurogenic bladder N31.9 DVT (deep venous thrombosis) I82.409 CAD (coronary artery disease) I25.10 Coronary Disease-Associated Artery/Lesion type: unspecified vessel or lesion type [place] vs. transplanted heart: [place] heart Associated angina: angina presence unspecified Diabetes mellitus, type II E11.9; Z79.4 Diabetes mellitus custodial insulin use: with supervisor intermediates use Diabetes mellitus complication status: without complication
[2021-04-05 11:44] VITALS: BP 103/63; PULSE 76; RESP 18; TEMP 36.4; O2SAT 96
[2021-04-05 12:19] LABS: Glucose Point of Care 226 mg/dL (70-110)
[2021-04-05 16:00] VITALS: BP 127/80; PULSE 79; RESP 17; TEMP 36.6; O2SAT 90
[2021-04-05 17:21] LABS: Glucose Point of Care 234 mg/dL (70-110)
[2021-04-05] MEDS: sennosides-docusate Tablet 1 TAB PO (18:21)
[2021-04-05 20:00] VITALS: BP 100/69; PULSE 81; RESP 18; TEMP 36.8; O2SAT 97
[2021-04-05 20:18] LABS: Glucose Point of Care 192 mg/dL (70-110)
[2021-04-05] MEDS: acetaminophen 325 mg Tablet 650 MG PO (20:32)
[2021-04-06] VITALS (7 sets, daily range): BP systolic 97–126; BP diastolic 62–78; PULSE 61–89; RESP 16–18; TEMP 36.6–36.9; O2SAT 95–97
[2021-04-06 06:32] LABS: Glucose Point of Care 155 mg/dL (70-110)
[2021-04-06] MEDS: rivaroxaban 10 mg Tablet 20 MG PO (09:43)
[2021-04-06] MEDS: tamsulosin 0.4 mg Capsule 0.8 MG PO (09:43)
[2021-04-06] MEDS: fluconazole 100 mg Tablet PO (09:43)
[2021-04-06] MEDS: aspirin 81 mg EC Tablet PO (09:43)
[2021-04-06] MEDS: atorvastatin 40 mg Tablet PO (09:43)
[2021-04-06] MEDS: diclofenac 1% Topical Gel 100 gm 1 APPLIC TOPICAL ×4 (09:43→21:58)
[2021-04-06] MEDS: pantoprazole DR 40 mg Tablet PO (09:43)
--- NOTE | 2021-04-06 10:17 | PC.SOCIAL ---
IMM Update Pg.2 of [facility] Updated and reviewed with patient who verbalized understanding, copy provided.
[2021-04-06 10:57] LABS: Glucose Point of Care 233 mg/dL (70-110)
[2021-04-06] MEDS: sennosides-docusate Tablet 1 TAB PO (12:58)
--- NOTE | 2021-04-06 14:27 | P.PN_ITS ---
Subjective Subjective: Interval history: Afebrile, hemodynamically stable, no acute interim events. Completing day 4 of antibiotic Primaxin today. Medications: Reviewed: Yes Vitals/I&O/Wt Last Vital Signs Temp 98.1 F 04/06/21 11:16 Pulse 72 04/06/21 11:16 Resp 16 04/06/21 11:16 BP 108/71 04/06/21 11:16 Pulse Ox 97 04/06/21 11:16 04/05/21 04/06/21 04/06/21 22:59 06:59 14:59 Intake Total 1180 / 2240 680 / 2920 1200 / 1200 Output Total 650 / 650 Balance 1180 / 2240 30 / 2270 1200 / 1200 Physical Exam Narrative: EXAM NARRATIVE: GEN: Awake, alert and oriented, no acute distress CVS: S1S2 N RS: CTA B/L Abd: Soft, nt/nd , bs+ RIVER TESTER: no focal neuro deficits Data : 04/04/21 04:55 04/04/21 04:55 A&P Assessment and plan (1) Sepsis secondary to UTI: Sepsis on presentation: As the patient has fever , tachycardia , leukocytosis, hypotension on admission and UTI. Sepsis is now resolved. Blood culture: No growth to date Urine culture: Now identified as Klebsiella ESBL, no good oral option to transition patient, will plan for 5 days of Primaxin course and then discharged home. CT abdomen pelvis without contrast:No acute findings. Xray chest :No acute findings Culp was changed upon admission. Status: Acute (2) UTI (urinary tract infection): Complicated Recurrent UTI due to neurogenic bladder, currently with Culp in place Patient has h/o h/o recurrent UTI ,including ESBL UTI in past. Status: Acute Qualifiers: Encounter type: initial encounter Indwelling urinary catheter type: indwelling urethral catheter Urinary tract infection type: catheter-associated UTI Qualified Code(s): T83.511A - Infection and inflammatory reaction due to indwelling urethral catheter, initial encounter; N39.0 - Urinary tract infection, site not specified (3) Neurogenic bladder: resume home medications. Culp catheter is changed every month. Status: Chronic (4) DVT (deep venous thrombosis): H/O DVT Currently on Xarelto 20 mg p.o. daily Patient had complained of right lower extremity pain because of which lower extremity Doppler was performed on 518, this showed a residual chronic right leg DVT beginning at the CFV. Vein and popliteal, already on appropriate anticoagulation. Chronic appearing changes in the calf veins. No acute DVT identified. X-ray of the pelvis did not identify any acute fractures Tizanidine was initiated, patient reports pain is improved now. Status: Acute (5) CAD (coronary artery disease): Resume home doses of aspirin, statin Status: Acute Qualifiers: Coronary Disease-Associated Artery/Lesion type: unspecified vessel or lesion type [place] vs. transplanted heart: [place] heart Associated angina: angina presence unspecified Qualified Code(s): I25.10 - Atherosclerotic heart disease of [place] coronary artery without angina pectoris (6) Diabetes mellitus, type II: Low-dose sliding scale insulin Currently well controlled. Status: Chronic Qualifiers: Diabetes mellitus skilled nursing insulin use: with skilled nursing use Diabetes mellitus complication status: without complication Qualified Code(s): E11.9 - Type 2 diabetes mellitus without complications; Z79.4 - emt intermediate (current) use of insulin Attestations Medical Necessity Statement*: Day 4 out of 5 of antibiotics Primaxin, will complete course tomorrow, plan to be discharged home afterwards. Coding Level of Care Code Acute Marketing Analyst for [facility] Fwd Diagnoses Sepsis secondary to UTI A41.9; N39.0 UTI (urinary tract infection) T83.511A; N39.0 Encounter type: initial encounter Indwelling urinary catheter type: indwelling urethral catheter Urinary tract infection type: catheter-associated UTI Neurogenic bladder N31.9 DVT (deep venous thrombosis) I82.409 CAD (coronary artery disease) I25.10 Coronary Disease-Associated Artery/Lesion type: unspecified vessel or lesion type [place] vs. transplanted heart: [place] heart Associated angina: angina presence unspecified Diabetes mellitus, type II E11.9; Z79.4 Diabetes mellitus keno terminal operator insulin use: with keno terminal operator use Diabetes mellitus complication status: without complication
[2021-04-06 17:15] LABS: Glucose Point of Care 220 mg/dL (70-110)
[2021-04-06 20:48] LABS: Glucose Point of Care 263 mg/dL (70-110)
[2021-04-07 04:00] VITALS: BP 102/66; PULSE 79; RESP 18; TEMP 36.6; O2SAT 95
[2021-04-07 07:02] LABS: Glucose Point of Care 146 mg/dL (70-110)
[2021-04-07 08:00] VITALS: BP 116/77; PULSE 78; RESP 18; TEMP 36.9; O2SAT 97
[2021-04-07] MEDS: rivaroxaban 10 mg Tablet 20 MG PO (08:27)
[2021-04-07] MEDS: tamsulosin 0.4 mg Capsule 0.8 MG PO (08:27)
[2021-04-07] MEDS: atorvastatin 40 mg Tablet PO (08:28)
[2021-04-07] MEDS: fluconazole 100 mg Tablet PO (08:28)
[2021-04-07] MEDS: pantoprazole DR 40 mg Tablet PO (08:28)
[2021-04-07] MEDS: aspirin 81 mg EC Tablet PO (08:28)
[2021-04-07] MEDS: diclofenac 1% Topical Gel 100 gm 1 APPLIC TOPICAL (08:37)
--- NOTE | 2021-04-07 10:55 | P.DS_ITS ---
Discharge Providers Date of Admission: 04/01/21 22:11 Date of Discharge: April 07, 2021 Attending Provider at Admission: Celia Muñoz MD Attending Provider at Discharge: Marizol Chavez MD Primary Care Provider: JESE Calvo Diagnoses at Discharge Discharge Diagnosis (1) Sepsis secondary to UTI: Status: Acute (2) UTI (urinary tract infection): Status: Acute Qualifiers: Encounter type: initial encounter Indwelling urinary catheter type: indwelling urethral catheter Urinary tract infection type: catheter-associated UTI Qualified Code(s): T83.511A - Infection and inflammatory reaction due to indwelling urethral catheter, initial encounter; N39.0 - Urinary tract infection, site not specified (3) Neurogenic bladder: Status: Chronic (4) DVT (deep venous thrombosis): Status: Acute (5) CAD (coronary artery disease): Status: Acute Qualifiers: Associated angina: angina presence unspecified Coronary Disease- Associated Artery/Lesion type: unspecified vessel or lesion type [place] vs. transplanted heart: [place] heart Qualified Code(s): I25.10 - Atherosclerotic heart disease of [place] coronary artery without angina pectoris (6) Diabetes mellitus, type II: Status: Chronic Qualifiers: Diabetes mellitus complication status: without complication Diabetes mellitus filler leaf cutter long insulin use: with filler leaf cutter long use Qualified Code(s): E11.9 - Type 2 diabetes mellitus without complications; Z79.4 - skilled nursing (current) use of insulin Reason for Visit Reason for Visit: n/v/weakness Hospital Course Hospital Course Arnie Butler is a 65 year old male with pmh of ESBL UTI, HTN presented to ER with complaints of not feeling well, fevers, and dysuria. In the ER he was noted to be hypotensive. BP responed to IVF. He reported low grade fever. Hsoputal course as below: (1) Sepsis secondary to UTI: Sepsis on presentation: As the patient has fever , tachycardia , leukocytosis, hypotension on admission and UTI. Sepsis is now resolved. Blood culture: No growth to date Urine culture: Klebsiella ESBL, no good oral option to transition patient, treated with 5 days of Primaxin course and then discharged home. CT abdomen pelvis without contrast:No acute findings. Xray chest :No acute findings Culp was changed upon admission. (2) UTI (urinary tract infection): Complicated Recurrent UTI due to neurogenic bladder, currently with Culp in place Patient has h/o h/o recurrent UTI ,including ESBL UTI in past. Culp changed on current admission (3) Neurogenic bladder: Continued home medications. (4) DVT (deep venous thrombosis): H/O DVT Currently on Xarelto 20 mg p.o. daily Patient had complained of right lower extremity pain because of which lower extremity Doppler was performed on 518, this showed a residual chronic right leg DVT beginning at the CFV. Vein and popliteal, already on appropriate anticoagulation. Chronic appearing changes in the calf veins. No acute DVT identified. X-ray of the pelvis did not identify any acute fractures Tizanidine was initiated, patient reports pain is improved now. Physical Exam Narrative: EXAM NARRATIVE: GEN: Awake, alert and oriented, no acute distress CVS: S1S2 N RS: CTA B/L Abd: Soft, nt/nd , bs+ MANAGER ORANGE: no focal neuro deficits Discharge Data Data Completed and Pending: Completed Studies During Hospitalization Category Date Time Status CT abdomen pelvis w con* [id number] Urge nt Cat Scan 04/01/21 20:05 Completed XR chest 1V arnaldo ble [id number] Urgent Exams 04/01/21 20:05 Completed XR hip RT 1V wo/w pel [id number] Routine Exams 04/03/21 16:56 [place] [id number] Routin e Ultrasound 04/04/21 Completed Labs from last 24 hours 04/07/21 04/06/21 04/06/21 06:38 20:33 16:55 POC Glucose 146 H 263 H 220 H 04/06/21 10:42 POC Glucose 233 H Vitals: Last Vital Signs Temp 98.5 F 04/07/21 08:00 Pulse 78 04/07/21 08:00 Resp 18 04/07/21 08:00 BP 116/77 04/07/21 08:00 Pulse Ox 97 04/07/21 08:00 Discharge Plan Discharge Patient Disposition: Home Condition: Stable Prescriptions: Continued Dexilant 60 mg capsule,biphase delayed releas 60 mg PO DAILY 90 Days Qty: 90 RF: 1 Victoza 3-Tristan 0.6 mg/0.1 mL (18 mg/3 mL) pen injector 1.8 mg SUBCUT DAILY 90 Days Qty: 27 RF: 2 (DME) blood-glucose meter Kit See Rx Instructions .ROUTE .MEDSUPPLY Qty: 1 RF: 0 aspirin 81 mg tablet,delayed release (DR/EC) 81 mg PO DAILY Qty: 90 RF: 1 rosuvastatin [Crestor] 10 mg tablet 10 mg PO DAILY 90 Days Qty: 90 RF: 1 Xarelto 20 mg tablet 20 mg PO DAILY 90 Days Qty: 90 RF: 1 OneTouch Verio test strips Strip See Rx Instructions .ROUTE .COMPLEX Qty: 100 RF: 5 tamsulosin 0.4 mg capsule 0.8 mg PO DAILY RF: 0 acetaminophen [Tylenol] 325 mg Tablet 650 mg PO DAILY PRN (Reason: Pain) RF: 0 sennosides-docusate sodium [Senna Plus] 8.6-50 mg Tablet 1 tab PO BID PRN (Reason: Constipation) RF: 0 baclofen 10 mg Tablet 10 mg PO DAILY PRN (Reason: Pain) RF: 0 nitroglycerin 0.4 mg tablet, sublingual 0.4 mg SUBLINGUAL Q5M PRN (Reason: Chest Pain) RF: 0 Discharge Orders: Discharge Order (Routine); Ordered 04/07/21 Ordered By: Marizol Chavez Other Ambulatory Orders: DME: Miscellaneous (Order) Location: None Selected Ordered By: Marizol Chavez Referrals: [facility] [Outside] ([facility] will be contacting you about a time to set up a visit. If you have any questions or concern please call them at [phone].) PASCUAL Neely, CLINICAL RESEARCH PHYSICIAN [Primary Care Provider] - 04/12/21 10:00 am (hospital discharge follow up for UTI ) Discharge Diet: Usual diet Discharge Activity: Resume usual activity Patient Instructions: Urinary Tract Infection in Men (GEN), Wheel Chair Transfers (GEN), Sepsis (GEN), Opioid Safety Discharge Attestations Time Spent in Discharge Care*: less than 30 min Quality Metrics Clinical Quality Measures During this hospital stay, did patient experience: None Coding Level of Care Code Acute [facility] note Diagnoses Sepsis secondary to UTI A41.9; N39.0 UTI (urinary tract infection) T83.511A; N39.0 Encounter type: initial encounter Indwelling urinary catheter type: indwelling urethral catheter Urinary tract infection type: catheter-associated UTI Neurogenic bladder N31.9 DVT (deep venous thrombosis) I82.409 CAD (coronary artery disease) I25.10 Associated angina: angina presence unspecified Coronary Disease-Associated Artery/Lesion type: unspecified vessel or lesion type [place] vs. transplanted heart: [place] heart Diabetes mellitus, type II E11.9; Z79.4 Diabetes mellitus complication status: without complication Diabetes mellitus filler leaf cutter long insulin use: with mcfp use
[2021-04-07 11:23] VITALS: BP 122/77; PULSE 74; RESP 18; TEMP 37.2; O2SAT 98
[2021-04-07 12:03] LABS: Glucose Point of Care 168 mg/dL (70-110)
[2021-04-07 12:08] VITALS: BP 122/77; PULSE 74; RESP 18; TEMP 37.2; O2SAT 98
== END 2021-04-07 13:58 | disposition home health service (06) | DRG 698 ==
LOC: ER 19:47 → MEDSURG 23:00
PROVIDERS: Internal Medicine; Admitting Provider Internal Medicine; Emergency Provider Family Medicine; PCP Nurse Practitioner Family; Visit Provider Student in an Organized Health Care Education/Training Program
DX: T83.518A Infection and inflammatory reaction due to other urinary catheter, initial encounter (principal); A41.9 Sepsis, unspecified organism; G82.20 Paraplegia, unspecified; I82.511 Chronic embolism and thrombosis of right femoral vein; I82.531 Chronic embolism and thrombosis of right popliteal vein; Y73.1 Therapeutic (nonsurgical) and rehabilitative gastroenterology and urology devices associated with adverse incidents; I10 Essential (primary) hypertension; Z87.440 Personal history of urinary (tract) infections; I95.9 Hypotension, unspecified; N40.0 Benign prostatic hyperplasia without lower urinary tract symptoms; I25.10 Atherosclerotic heart disease of native coronary artery without angina pectoris; Z95.5 Presence of coronary angioplasty implant and graft; E11.9 Type 2 diabetes mellitus without complications; N52.9 Male erectile dysfunction, unspecified; K21.9 Gastro-esophageal reflux disease without esophagitis; E78.2 Mixed hyperlipidemia; N31.9 Neuromuscular dysfunction of bladder, unspecified; E55.9 Vitamin D deficiency, unspecified; Z95.0 Presence of cardiac pacemaker; M79.605 Pain in left leg; M79.604 Pain in right leg; R25.2 Cramp and spasm; Z79.01 Long term (current) use of anticoagulants; Z79.82 Long term (current) use of aspirin; Z79.4 Long term (current) use of insulin; R07.9 Chest pain, unspecified; B96.1 Klebsiella pneumoniae [K. pneumoniae] as the cause of diseases classified elsewhere
CPT/HCPCS: 36415; 36416; 71045; 73501; 74177; 80048; 80053; 81001; 82962; 83605; 83690; 84145; 84484; 85025; 86140; 87040; 87077; 87086; 87186; 93005; 93970; 96365; 96372; 96375; 97110; 97162; 97530; 99285; J0743; J1450; J1650; J1815; J2405; J2543; J7030; Q9967

== ENCOUNTER 2021-04-12 12:55 | Emergency (ER) | payer MEDICARE, MEDICAID, SELFPAY ==
[2021-04-12 13:10] VITALS: BP 90/66; PULSE 96; RESP 16; TEMP 36.4; O2SAT 97; BMI 24.5
--- NOTE | 2021-04-12 13:16 | ECG_ITS ---
[facility] Test Date: 2021-04-12 Pat Name: Arnie Butler Department: Room: Gender: Male Scheduler Maintenance: : 1955 Requested By: Lars Gregory Order Number: [id number] Lopez MD: Waldemar King M.D. Measurements Intervals [place] Rate: 86 P: [place]: QRS: 73 QRSD: 80 T: 18 QT: 376 QTc: 451 Interpretive Statements ATRIAL FIBRILLATION LOW QRS VOLTAGE IN PRECORDIAL LEADS [QRS DEFLECTION < 1.0 mV IN CHEST LEADS] NONSPECIFIC T-WAVE ABNORMALITY Compared to ECG 04/05/2021 05:07:53 T-wave abnormality now present Electronically Signed On 04-12-2021 17:40:56 CDT by Waldemar King M.D. [email or web address]/OM/[id number]
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
[2021-04-12 14:59] LABS: Basophils % 0.3 %; Eosinophils # 0.1 10^3/uL (0.0-0.8); Eosinophils % 0.9 %; Hemoglobin 12.9 g/dL (11.7-16.6); Lymphocytes # 1.4 10^3/uL (0.8-4.8); Lymphocytes % 14.8 %; Mean Corpuscular HGB Conc 32.3 g/dL (30.0-36.0); Mean Corpuscular Hemoglobin 27.1 pg (28.0-34.0); Mean Platelet Volume 9.8 fL (7.4-10.4); Monocytes # 0.7 10^3/uL (0.2-0.9); Monocytes % 6.9 %; Neutrophils # 7.31 10^3/uL (1.8-7.7); Neutrophils % 76.4 %; Nucleated Red Blood Cells % 0 %; Platelet Count 252 10^3/cmm (130-400); Red Blood Count 4.76 10^6/uL (4.1-5.3); Red Cell Distribution Width 13.6 % (12.1-15.1); White Blood Count 9.6 10^3/uL (4.0-10.0)
--- NOTE | 2021-04-12 15:16 | ECG_ITS ---
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 Measurements Intervals [place] Rate: 87 P: [place]: QRS: 83 QRSD: 78 T: 41 QT: 363 QTc: 437 Interpretive Statements ATRIAL FIBRILLATION LOW QRS VOLTAGE IN PRECORDIAL LEADS [QRS DEFLECTION < 1.0 mV IN CHEST LEADS] SEPTAL MYOCARDIAL INFARCTION , PROBABLY OLD [40+ ms Q WAVE IN V1/V2] Compared to ECG 04/12/2021 13:49:02 Myocardial infarct finding now present T-wave abnormality no longer present Electronically Signed On 04-12-2021 17:48:35 CDT by Waldemar King M.D. [id number]
[2021-04-12 15:19] LABS: Lactic Sepsis W/Reflex 1.2 mmol/L (0.5-2.2)
[2021-04-12 15:20] LABS: Alanine Aminotransferase 21 U/L (0-41); Albumin Level 3.6 g/dL (3.5-5.2); Alkaline Phosphatase 199 IU/L (40-130); Anion Gap 11.1 (5-19); Aspartate Amino Transferase 20 U/L (0-40); Blood Urea Nitrogen 15 mg/dL (8-23); Calcium 8.6 mg/dL (8.5-10.5); Carbon Dioxide 26 mmol/L (22-29); Chloride 104 mmol/L (98-107); Creatine Phosphokinase 33 U/L (39-308); Globulin 3.1 g/dL (1.3-4.6); Glomerular Filtration Rate 165.9 mL/min (90-130); Glucose 229 mg/dL (65-115); Osmolality Calculated 292 mOsm/kg (285-295); Potassium 4.1 mmol/L (3.5-5.1); Sodium 137 mmol/L (136-145); Total Bilirubin 0.7 mg/dL (0.15-1.2); Total Protein 6.7 g/dL (6.6-8.7)
[2021-04-12 15:27] LABS: Creatinine Clr Calc Pharmacy 97.7298
--- NOTE | 2021-04-12 15:40 | XR_ITS ---
WS: [id number] Exam: XR chest 1V portable [id number] Date/Time of Exam: 04/12/2021 3:44 PM Reason For Exam: dyspnea/cough Comparison 04/01/2021. The lungs are fully expanded and clear. Normal cardiomediastinal structures. No pleural effusions. An ICD superimposes the left chest. Bony structures are unremarkable. XR/XR chest 1V portable [id number] IMPRESSION: 1. Pulmonary hyperinflation which may indicate COPD. No acute process noted.
[2021-04-12 15:41] LABS: Troponin(5th) Baseline 13 ng/L (0-15)
[2021-04-12 16:15] VITALS: BP 124/79; PULSE 80; RESP 18; O2SAT 96
[2021-04-12 16:38] LABS: Add Urine Microscopic? YES; Bilirubin Urine Neg (Negative); Blood Urine 3+ (Negative); Glucose Urine UA 4+ (Normal); Ketones Urine Negative (Negative); Leukocyte Esterase Urine 2+ (Negative); Nitrate Urine Negative (Negative); Protein Urine 2+ (Negative); Specific Gravity, Urine 1.025 (1.005-1.030); Urine Appearance Hazy (CLEAR); Urine Color Yellow (Yellow); Urobilinogen Urine Norm (Negative); pH Urine 5 (5-7)
[2021-04-12 16:41] LABS: Add Urine Culture? Yes; Bacteria Urine 2+ /hpf; WBC Urine TOO NUMEROUS TO CNT /hpf (0-5)
[2021-04-12 17:17] LABS: Troponin 5 2HR 12.85 ng/L (0-15)
[2021-04-12 17:18] LABS: Troponin 5 2HR Delta -0.15 ABS# (0-10)
[2021-04-12 17:22] VITALS: BP 122/72; PULSE 84; RESP 13; TEMP 36.9; O2SAT 96
[2021-04-12] MEDS: amoxicillin-clav 875-125 mg Tablet 1 TAB PO (17:31)
[2021-04-12 17:36] VITALS: BP 121/68; PULSE 82; RESP 18; TEMP 36.9; O2SAT 96
== END 2021-04-12 18:51 | disposition home or self-care (01) ==
PROVIDERS: Emergency Provider Family Medicine; PCP Nurse Practitioner Family
DX: N39.0 Urinary tract infection, site not specified (principal); Z79.82 Long term (current) use of aspirin; I25.10 Atherosclerotic heart disease of native coronary artery without angina pectoris; E11.9 Type 2 diabetes mellitus without complications; I10 Essential (primary) hypertension; E78.2 Mixed hyperlipidemia; Z87.440 Personal history of urinary (tract) infections; Z95.0 Presence of cardiac pacemaker
CPT/HCPCS: 36415; 71045; 80053; 81001; 82550; 83605; 84484; 85025; 87040; 87077; 87086; 87186; 93005; 99284

== ENCOUNTER → 2021-06-19 14:02 | Outpatient (BNVA) | payer MEDICARE, MEDICAID, SELFPAY | PROVIDERS: PCP Nurse Practitioner Family; Visit Provider Nurse Practitioner Family | DX: A49.9 Bacterial infection, unspecified (principal); N39.0 Urinary tract infection, site not specified | CPT/HCPCS: 81003; 87086 ==

== ENCOUNTER → 2021-06-27 00:01 | Outpatient (BNVA) | payer MEDICARE, MEDICAID, SELFPAY | PROVIDERS: PCP Nurse Practitioner Family; Visit Provider Nurse Practitioner Family | DX: A49.9 Bacterial infection, unspecified (principal); N39.0 Urinary tract infection, site not specified | CPT/HCPCS: 81003; 87077; 87086; 87106; 87107; 87184 ==

== ENCOUNTER 2022-03-04 13:37 | Emergency (ER) | payer MEDICARE, MEDICAID, SELFPAY ==
[2022-03-04 13:57] VITALS: BP 72/50; PULSE 94; RESP 18; TEMP 36.8; O2SAT 94; BMI 22.3
[2022-03-04 14:23] VITALS: PULSE 94; RESP 20; O2SAT 97
--- NOTE | 2022-03-04 14:27 | XRR_ITS ---
PROCEDURE INFORMATION: Exam: XR Chest Exam date and time: 03/04/2022 2:36 PM Age: 66 years old Clinical indication: Cough TECHNIQUE: Imaging protocol: XR of the chest. Views: 1 view. COMPARISON: CR XR chest 1V portable [id number] 04/12/2021 3:40 PM FINDINGS: Tubes, catheters and devices: Pacer device noted in the left chest wall. Lungs: No consolidation. Pleural spaces: No pleural effusion. No pneumothorax. Heart/Mediastinum: No cardiomegaly. Bones/joints: Visualized osseous structures are intact. XR/XR chest 1V portable [id number] IMPRESSION: No acute findings.
--- NOTE | 2022-03-04 14:27 | ECG_ITS ---
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 Measurements Intervals [place] Rate: 91 P: [place]: QRS: 85 QRSD: 89 T: -67 QT: 339 QTc: 419 Interpretive Statements ATRIAL FIBRILLATION WITH DEMAND VENTRICULAR PACING LOW QRS VOLTAGE IN PRECORDIAL LEADS [QRS DEFLECTION < 1.0 mV IN CHEST LEADS] NONSPECIFIC T-WAVE ABNORMALITY Compared to ECG 04/12/2021 15:30:27 T-wave abnormality now present Myocardial infarct finding no longer present Electronically Signed On 03-06-2022 7:50:41 CDT by Kiya Franklin M.D. [id number]
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
[2022-03-04] MEDS: sodium chloride 0.9% 1,000 ML 999 ML IV (14:37)
[2022-03-04 14:39] LABS: Basophils % 0.2 %; Eosinophils # 0.1 10^3/uL (0.0-0.8); Eosinophils % 0.5 %; Hemoglobin 14.1 g/dL (11.7-16.6); Lymphocytes # 1.1 10^3/uL (0.8-4.8); Lymphocytes % 11.3 %; Mean Corpuscular HGB Conc 32.8 g/dL (30.0-36.0); Mean Corpuscular Hemoglobin 27.6 pg (28.0-34.0); Mean Corpuscular Volume 84.3 fl (80-94); Mean Platelet Volume 9.9 fL (7.4-10.4); Monocytes # 1.2 10^3/uL (0.2-0.9); Monocytes % 12.3 %; Neutrophils # 7.51 10^3/uL (1.8-7.7); Neutrophils % 75.1 %; Nucleated Red Blood Cells % 0 %; Platelet Count 150 10^3/cmm (130-400); Red Cell Distribution Width 14.2 % (12.1-15.1)
[2022-03-04 15:10] LABS: Alanine Aminotransferase 20 U/L (0-41); Albumin Level 3.8 g/dL (3.5-5.2); Alkaline Phosphatase 129 IU/L (40-130); Anion Gap 15.2 (5-19); Aspartate Amino Transferase 18 U/L (0-40); Blood Urea Nitrogen 14 mg/dL (8-23); Calcium 8.3 mg/dL (8.5-10.5); Carbon Dioxide 23 mmol/L (22-29); Chloride 101 mmol/L (98-107); Creatinine Clr Calc Pharmacy 92.7625; Globulin 2.6 g/dL (1.3-4.6); Glomerular Filtration Rate 165.4 mL/min (90-130); Glucose 292 mg/dL (65-115); Osmolality Calculated 291 mOsm/kg (285-295); Potassium 4.2 mmol/L (3.5-5.1); Sodium 135 mmol/L (136-145); Total Bilirubin 1.2 mg/dL (0.15-1.2); Total Protein 6.4 g/dL (6.6-8.7)
[2022-03-04 16:23] LABS: Add Urine Culture? Yes; Add Urine Microscopic? YES; Bacteria Urine 2+ /hpf; Bilirubin Urine Neg (Negative); Blood Urine 3+ (Negative); Glucose Urine UA 4+ (Normal); Ketones Urine Negative (Negative); Leukocyte Esterase Urine 2+ (Negative); Mucus Urine 1+ /hpf; Nitrate Urine Negative (Negative); Protein Urine 3+ (Negative); RBC Urine 15-25 /hpf (0-2); Specific Gravity, Urine 1.015 (1.005-1.030); Squamous Epithelial Cell Urine 0-4 /hpf (0-5); Urine Appearance Cloudy (CLEAR); Urine Color Yellow (Yellow); Urobilinogen Urine 1 mg/dL (Negative); WBC Urine 25-40 /hpf (0-5); pH Urine 7 (5-7)
[2022-03-04 18:13] VITALS: BP 95/64; PULSE 97; RESP 15; O2SAT 96
== END 2022-03-04 18:16 | disposition home or self-care (01) ==
PROVIDERS: Emergency Provider Emergency Medicine; PCP Nurse Practitioner Family
DX: T83.518A Infection and inflammatory reaction due to other urinary catheter, initial encounter (principal); Y73.8 Miscellaneous gastroenterology and urology devices associated with adverse incidents, not elsewhere classified; E11.9 Type 2 diabetes mellitus without complications; I48.20 Chronic atrial fibrillation, unspecified; Z95.0 Presence of cardiac pacemaker; Z79.899 Other long term (current) drug therapy; Z79.01 Long term (current) use of anticoagulants
CPT/HCPCS: 71045; 80053; 81001; 85025; 87077; 87086; 87186; 93005; 96365; 99284; J0295; J7030

== ENCOUNTER → 2022-04-18 13:57 | Outpatient (BNVA) | payer MEDICARE, MEDICAID, SELFPAY | PROVIDERS: PCP Nurse Practitioner Family; Visit Provider Nurse Practitioner | DX: E11.9 Type 2 diabetes mellitus without complications (principal) | CPT/HCPCS: 83036 ==

== ENCOUNTER → 2022-06-20 13:06 | Outpatient (BNVA) | payer MEDICARE, MEDICAID, SELFPAY | PROVIDERS: PCP Nurse Practitioner Family; Visit Provider Nurse Practitioner Family | DX: N39.0 Urinary tract infection, site not specified (principal); N31.9 Neuromuscular dysfunction of bladder, unspecified | CPT/HCPCS: 51702; 99203 ==

== ENCOUNTER → 2022-07-18 10:45 | Outpatient (BNVA) | payer MEDICARE, MEDICAID, SELFPAY | PROVIDERS: PCP Nurse Practitioner Family; Visit Provider Nurse Practitioner Family | DX: N31.9 Neuromuscular dysfunction of bladder, unspecified (principal); N39.9 Disorder of urinary system, unspecified | CPT/HCPCS: 51702 ==

== ENCOUNTER → 2022-08-29 13:07 | Outpatient (BNVA) | payer MEDICARE, MEDICAID, SELFPAY | PROVIDERS: PCP Nurse Practitioner Family; Visit Provider Nurse Practitioner Family | DX: R33.9 Retention of urine, unspecified (principal) | CPT/HCPCS: 99213 ==

== ENCOUNTER → 2023-01-01 14:00 | Outpatient (BNVA) | payer MEDICARE, MEDICAID, SELFPAY | PROVIDERS: PCP Nurse Practitioner; Visit Provider Nurse Practitioner | DX: N39.0 Urinary tract infection, site not specified (principal); A49.9 Bacterial infection, unspecified | CPT/HCPCS: 81000; 87077; 87086; 87184 ==

== ENCOUNTER → 2023-06-27 09:54 | Outpatient (BNVA) | payer MEDICARE, MEDICAID, SELFPAY | PROVIDERS: PCP Nurse Practitioner; Visit Provider Nurse Practitioner Family | DX: E78.2 Mixed hyperlipidemia (principal); I25.10 Atherosclerotic heart disease of native coronary artery without angina pectoris; E11.9 Type 2 diabetes mellitus without complications; N39.0 Urinary tract infection, site not specified; A49.9 Bacterial infection, unspecified; Z79.4 Long term (current) use of insulin; I95.9 Hypotension, unspecified; Z97.8 Presence of other specified devices | CPT/HCPCS: 80053; 80061; 81000; 83036; 85025; 87077; 87086; 87106; 87184 ==

== ENCOUNTER → 2024-03-31 11:13 | Outpatient (BNVA) | payer MEDICARE, MEDICAID, SELFPAY | PROVIDERS: PCP Nurse Practitioner Family; Visit Provider Nurse Practitioner Family | DX: I95.9 Hypotension, unspecified (principal); Z95.5 Presence of coronary angioplasty implant and graft; I25.10 Atherosclerotic heart disease of native coronary artery without angina pectoris; Z95.0 Presence of cardiac pacemaker; E11.9 Type 2 diabetes mellitus without complications; Z79.4 Long term (current) use of insulin; E55.9 Vitamin D deficiency, unspecified; N39.0 Urinary tract infection, site not specified; R31.9 Hematuria, unspecified; Z12.5 Encounter for screening for malignant neoplasm of prostate; R49.0 Dysphonia; H91.93 Unspecified hearing loss, bilateral; Z79.899 Other long term (current) drug therapy | CPT/HCPCS: 80053; 80061; 81003; 82306; 83036; 84443; 85025; 87077; 87086; 87184; G0103 ==

== ENCOUNTER → 2024-04-09 15:03 | Outpatient (BNVA) | payer MEDICARE, MEDICAID, SELFPAY | PROVIDERS: PCP Nurse Practitioner Family; Visit Provider Nurse Practitioner Family | DX: N39.0 Urinary tract infection, site not specified (principal); A49.9 Bacterial infection, unspecified | CPT/HCPCS: 81003; 87086 ==

== ENCOUNTER → 2024-05-04 09:18 | Outpatient (BNVA) | payer MEDICARE, MEDICAID, SELFPAY | PROVIDERS: PCP Nurse Practitioner Family; Visit Provider Nurse Practitioner Family | DX: I95.9 Hypotension, unspecified (principal); Z01.818 Encounter for other preprocedural examination; Z97.8 Presence of other specified devices | CPT/HCPCS: 80048; 81000; 85025 ==

== ENCOUNTER → 2024-05-06 15:39 | Outpatient (BNVA) | payer MEDICARE, MEDICAID, SELFPAY | PROVIDERS: PCP Nurse Practitioner Family; Visit Provider Nurse Practitioner Family | DX: N39.0 Urinary tract infection, site not specified (principal) | CPT/HCPCS: 81000 ==

== ENCOUNTER → 2024-05-27 08:29 | Outpatient (CLI) | payer MEDICARE, MEDICAID, SELFPAY ==
--- NOTE | 2024-05-27 08:32 | CTR_ITS ---
PROCEDURE INFORMATION: Exam: CT Neck With Contrast Exam date and time: 05/27/2024 9:10 AM Age: 69 years old Clinical indication: Dysphagia / difficulty swallowing; Prior surgery; Surgery date: 6+ months; Surgery type: Neck; Additional info: Dysphagia, PT having XR too TECHNIQUE: Imaging protocol: Computed tomography of the neck with contrast. Radiation optimization: All CT scans at this facility use at least one of these dose optimization techniques: automated exposure control; mA and/or kV adjustment per patient size (includes targeted exams where dose is matched to clinical indication); or iterative reconstruction. Contrast material: OMNI 350; Contrast volume: 100 ml; Contrast route: INTRAVENOUS (IV); COMPARISON: RF [place] barium swallow [id number] 05/27/2024 8:51 AM RADIATION DOSE METRICS: Total DLP (mGy-cm): 139.1 FINDINGS: Salivary glands: Normal. Glands are normal in size. Pharynx: Unremarkable. No significant tonsillar enlargement. Prevertebral and retropharyngeal spaces: Unremarkable. Larynx: Unremarkable. Epiglottis is normal. Thyroid: Normal. No enlarged or calcified nodules. Trachea: Visualized trachea is unremarkable. Lungs: Unremarkable as visualized. Lymph nodes: Unremarkable. No lymphadenopathy. Vasculature: Calcified plaque in the proximal right ICA with mild stenosis. Calcified plaque in the proximal left ICA with mild stenosis. Bones/joints: Anterior fusion C3-C4. Soft tissues: Unremarkable. No significant soft tissue swelling. Other findings: Emphysema. CT/CT neck w con* [id number] IMPRESSION: 1. Calcified plaque in the proximal right ICA with mild stenosis. 2. Calcified plaque in the proximal left ICA with mild stenosis.
--- NOTE | 2024-05-27 08:32 | FL_ITS ---
WS: [id number] Barium swallow and esophagram, 05/27/2024 Clinical Data: DYSPHAGIA Comparison: None. Fluoroscopy time: 0min [id number] # of spot films: 15 Findings: The patient was unable to stand and only lateral images were obtained. The patient swallowed the thin barium, and it flowed through the hypopharynx without hesitation. No stricture, mass, polyp or erosion was seen. There is slight penetration and possible minimal aspirati on. There was pooling of the contrast in the vallecula. The barium entered the esophagus and there was normal motility throughout. No hiatal hernia, reflux, stricture, polyp, mass, erosion or ulcer was noted. FL/FL barium swallow [id number] Impression: 1. Minimal penetration and possible minimal aspiration. 2. Pooling of contrast in the vallecula with slow clearing. 3. Negative esophagus.
[2024-05-27] MEDS: iohexol 350 mg/mL 500 mL Btl (per mL) IV (09:22)
== END | disposition home or self-care (01) ==
LOC: RAD 08:29
PROVIDERS: PCP Nurse Practitioner Family; Visit Provider Specialist
DX: R13.10 Dysphagia, unspecified (principal); J43.9 Emphysema, unspecified; I65.23 Occlusion and stenosis of bilateral carotid arteries
CPT/HCPCS: 70491; 74220; Q9967

== ENCOUNTER → 2024-06-24 16:43 | Outpatient (BNVA) | payer MEDICARE, MEDICAID, SELFPAY | PROVIDERS: PCP Nurse Practitioner Family; Visit Provider Nurse Practitioner Family | DX: N39.0 Urinary tract infection, site not specified (principal); A49.9 Bacterial infection, unspecified | CPT/HCPCS: 81003; 87086 ==

== ENCOUNTER 2024-07-28 05:34 | Day surgery (SDC) | payer MEDICARE, MEDICAID, SELFPAY ==
[2024-07-28] VITALS (8 sets, daily range): BP systolic 73–130; BP diastolic 50–91; PULSE 70–78; RESP 18; TEMP 36.1; O2SAT 94–98; BMI 22.3
[2024-07-28 06:23] LABS: Glucose Point of Care 147 mg/dL (70-110)
[2024-07-28] MEDS: sodium chloride 0.9% 1,000 ML 30 ML IV (06:26)
--- NOTE | 2024-07-28 06:34 | ECG_ITS ---
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 Measurements Intervals [place] Rate: 72 P: 0 [place]: 0 QRS: 76 QRSD: 81 T: -5 QT: 393 QTc: 430 Interpretive Statements ATRIAL FIBRILLATION LOW QRS VOLTAGE IN PRECORDIAL LEADS [QRS DEFLECTION < 1.0 mV IN CHEST LEADS] SEPTAL MYOCARDIAL INFARCTION , PROBABLY OLD [40+ ms Q WAVE IN V1/V2] Compared to ECG 03/04/2022 14:28:08 Myocardial infarct finding now present Ventricular-paced complex(es) or rhythm no longer present T-wave abnormality no longer present Electronically Signed On 07-28-2024 21:40:42 CDT by Kimberly Vences M.D. [id number]
--- NOTE | 2024-07-28 06:53 | W.PM.OPSUD ---
Surgery/Procedure H&P Update DATE OF PROCEDURE: July 28, 2024 DATE H&P PERFORMED: 08/10/24 CHANGES TO PREVIOUS DOCUMENTATION: None PRIMARY INDICATION FOR PROCEDURE: Chronic hoarseness True vocal cord lesions PLANNED PROCEDURE: Operation Date: 07/28/24 07:00 Proposed Procedures p Direct Laryngoscopy Direct Microdirect Larynoscopy with Biopsy [id number], R13.10, J38.3(Not Applicable) - Allen Batres MD
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
[2024-07-28 07:23] LABS: Potassium 4.1 mmol/L (3.5-5.1)
[2024-07-28] MEDS: fluorescein 1 mg Strip 2 MG XX (09:49)
[2024-07-28] MEDS: EPINEPHrine 1 mg/mL INJ 2 MG XX (09:49)
--- NOTE | 2024-07-28 10:02 | P.OP_ITS ---
Operative Report Date of procedure: July 28, 2024 Pre-op diagnosis: Laryngeal lesions Post-op diagnosis: Same Post-op findings: Irregular mucosal lesion involving the entirety of the left true vocal cord, the right true vocal cord, extending onto the right false vocal cord Procedure done: Microdirect laryngoscopy with biopsies Implants: None Specimens removed/disposition: - Left true vocal cord lesion - Right true vocal cord lesion Pathology: - Right false vocal cord lesion - Left true vocal cord lesion Surgeon: Allen Batres Surgeon: Allen Batres MD Business Line Controller: Pranay Romo Anesthesia: General Estimated blood loss (mL): 2 IV fluids (mL): 400 Complications: None Findings: Irregular, non obstructing mucosal lesion involing the left true vocal cord, the right true vocal cord, and the right false vocal cord Condition: stable Disposition: PACU Brief History: 69 yo wm with a h/o chronic hoarseness noted to have lesions of the bilateral vocal cords. The patient presents for surgical evaluation and biopsy. Procedure: The patient was identified in the preoperative hold area and was taken to the operating where he was placed on the operating table in the supine position. Anesthesia was obtained with general endotracheal anesthesia and the table was then turned 90 degrees to the patient's left. A moist Ray-Andrew was placed on the patient's maxillary teeth and a surgical laryngoscope was then advanced down the right oral cavity gutter under direct vision until the larynx came into view. An inspection was then made to the patient's larynx with the findings noted above. The patient was placed on suspension and the 0 degree Briggs humberto surgical telescope with with the attached video camera system was used to inspect the larynx and document the lesions noted above. Biopsies were taken with microcup forceps as indicated above and hemostasis was achieved with direct application of 1/100,000 epinephrine. At this point the patient was taken off suspension and the laryngoscope was atraumatically released and removed. The procedure was then terminated and control of the patient was returned to anesthesia where he underwent an uneventful reversal of anesthesia and extubation. The patient was taken to the recovery room in stable condition. There were no operative or anesthetic complications.
--- NOTE | 2024-07-28 11:10 | ANE.PACU2 ---
Inpatient post-anesthesia follow up: Airway intact: Yes Vital signs: Temperature 97.0 F Pulse Rate 71 Respiratory Rate 18 Blood Pressure 130/81 Pulse Oximetry 95 Oxygen Delivery Me thod Room Air Oxygen Flow Rate Fraction of Inspir ed Oxygen Hydration adequate: Yes Nausea and vomiting: No Pain level: 1 Mental status: Baseline
== END 2024-07-28 11:10 | disposition home or self-care (01) ==
PROVIDERS: Anesthesiology; PCP Nurse Practitioner Family; Visit Provider Specialist
PROC: 0CJS8ZZ Inspection of Larynx, Via Natural or Artificial Opening Endoscopic (ICD-10-PCS; CPT 31536; principal; 2024-07-28 07:00)
DX: C32.1 Malignant neoplasm of supraglottis (principal); I25.10 Atherosclerotic heart disease of native coronary artery without angina pectoris; Z79.01 Long term (current) use of anticoagulants; K21.9 Gastro-esophageal reflux disease without esophagitis; J44.9 Chronic obstructive pulmonary disease, unspecified; I48.91 Unspecified atrial fibrillation; Z95.5 Presence of coronary angioplasty implant and graft; I10 Essential (primary) hypertension; Z86.718 Personal history of other venous thrombosis and embolism; Z95.0 Presence of cardiac pacemaker; N40.0 Benign prostatic hyperplasia without lower urinary tract symptoms; E78.2 Mixed hyperlipidemia
CPT/HCPCS: 31536; 36415; 36416; 82962; 84132; 88305; 93005; J0171; J1100; J2001; J2405; J2704; J3010; J3490; J7030

== ENCOUNTER → 2024-08-13 15:41 | Outpatient (BNVA) | payer MEDICARE, MEDICAID, SELFPAY | PROVIDERS: PCP Nurse Practitioner Family; Visit Provider Nurse Practitioner Family | DX: N39.0 Urinary tract infection, site not specified (principal); A49.9 Bacterial infection, unspecified | CPT/HCPCS: 81003; 87086 ==

== ENCOUNTER → 2024-09-07 15:32 | Outpatient (BNVA) | payer MEDICARE, MEDICAID, SELFPAY | PROVIDERS: PCP Nurse Practitioner Family; Visit Provider Nurse Practitioner Family | DX: N39.0 Urinary tract infection, site not specified (principal) | CPT/HCPCS: 81003; 87086 ==

== ENCOUNTER → 2025-01-14 11:35 | Outpatient (BNVA) | payer MEDICARE, MEDICAID, SELFPAY | PROVIDERS: PCP Nurse Practitioner Family; Visit Provider Nurse Practitioner Family | DX: N39.0 Urinary tract infection, site not specified (principal); A49.9 Bacterial infection, unspecified | CPT/HCPCS: 81003; 87077; 87086; 87184 ==